=== PATIENT | male | born 1960 | race Caucasian/White ===

== ENCOUNTER 2017-05-03 09:57 | Day surgery (SDC) | payer BC ==
[2017-05-02 13:01] VITALS: BMI 31.1
[2017-05-03] MEDS ORDERED: Propofol 500 MG/50 ML VIAL ONE (10:28)
[2017-05-03] MEDS ORDERED: Midazolam HCl 2 mg/2 ml Vial ONE (10:28)
[2017-05-03] MEDS ORDERED: Fentanyl 100 MCG/2 ML VIAL ONE (10:28)
--- NOTE | 2017-05-03 13:16 | MRI ---
CERVICAL SPINE MRI WITHOUT CONTRAST: Date: 05-03-17 Comparison: 01-20-09 History: Cervical radiculopathy, left shoulder and neck pain for a few months. Technique: Multiplanar, multisequence MR imaging of the cervical spine provided without contrast. FINDINGS: The sagittal STIR imaging demonstrates no focal area of osseous marrow edema. There is no anterolisthesis or retrolisthesis seen. There is mild degenerative change at the atlantoa xial interspace, stable. No prevertebral soft tissue abnormality is noted. C2-3: No central canal or neural foraminal stenosis. C3-4: Mild left sided facet hypertrophy. Mild anterior osteophyte formation. Mild left neural foramin al stenosis. No central canal or right neural foraminal stenosis. C4-5: There is mild bilateral facet hypertrophy, left greater than right. There is no significant shiraz tral canal or neural foraminal stenosis. C5-6: There is mild disc space narrowing and anterior osteophyte formation. There is mild disc bulge with partial effacement of the ventral thecal sac and minimal central canal stenosis. There is a smal l central disc protrusion with minimal superior migration. There is mild facet and uncal vertebral osteophyte formation, left greater than right. There is mild bilateral neural foraminal stenosis, left greater than right. C6-7: There is minimal disc bulge with no central canal or neural foraminal stenosis. C7-T1: Intervertebral disc height and signal intensity is grossly unremarkable with no significant c entral canal or neural foraminal stensois. No focal area of abnormal signal intensity is identified within the cervical cord. IMPRESSION: 1. Relatively mild degenerative change noted within the cervical spine. There is no severe central ca nal or neural foraminal stenosis. POS: [facility]
== END 2017-05-03 12:50 | disposition home or self-care (01) ==
LOC: SDC/OP 09:57
PROVIDERS: ATTEND Nurse Practitioner Family
DX: M54.12 Radiculopathy, cervical region (principal); Z79.891 Long term (current) use of opiate analgesic; Z79.899 Other long term (current) drug therapy
CPT/HCPCS: 72141; J2250; J2704; J3010

== ENCOUNTER 2020-08-04 08:02 | Inpatient (IN) | payer BC ==
[2020-08-04 08:38] LABS: Actual Bicarbonate (HCO3a) 19.8 mEq/L (22-28); Analyzer IN Cardio ER; Base Excess (BEa) -4.6 mEq/L (-2.0 to +3.0); CO2 Tension 34.4 mmHg (35.0-45.0); Calcium, Ionized (arterial) 1.01 mmol/L (1.12-1.30); Hemoglobin (Hb) 14.1 g/dL (14.0-18.0); pH, Arterial 7.38 (7.35-7.45)
[2020-08-04 08:43] LABS: O2 Tension (PaO2), arterial 54.2 mmHg (80.0-100.0); Puncture Site RRA
[2020-08-04] MEDS ORDERED: Dexamethasone 10 MG/ML VIAL ONE (08:52)
[2020-08-04] MEDS ORDERED: Acetaminophen 500 MG TAB ONE (08:52)
[2020-08-04] MEDS ORDERED: Ondansetron PF 4 MG/2 ML Vial ONE (08:52)
[2020-08-04 08:53] LABS: Hemoglobin 13.8 g/dL (14.0-18.0); Mean Corpuscular HGB CONC 33.1 g/dL (32.0-36.0); Mean Corpuscular Hemoglobin 29.7 pg (27.0-31.0); Mean Corpuscular Volume 89.6 fL (78.0-98.0); Mean Platelet Volume 8.5 fL (7.4-10.4); Platelet Count 263 thou/uL (130-400); RBC Distribution Width 12.6 % (11.5-14.5); Red Blood Cell (RBC) Count 4.64 mill/uL (4.70-6.10); White Blood Cell (WBC) Count 9.6 thou/uL (4.8-10.8)
[2020-08-04 09:07] LABS: Band 16 % (5-11); Lymphocytes 12 % (21-51); MDiff Complete? YES; Monocytes 2 % (0-10); Neutrophil 69 % (42-75); Platelet Morphology Comment Appears Adequate; RBC Morphology Normal; Reactive Lymphocytes 1 % (0-10)
[2020-08-04 09:15] LABS: Anion Gap 18 mmol/L (10-20); BUN (Urea Nitrogen) 76 mg/dL (8.4-25.7); Calc. Creatinine Clearance 0 mL/min (70-130); Carbon Dioxide 23 mmol/L (22-29); Chloride 97 mmol/L (98-107); Potassium 4.7 mmol/L (3.5-5.1); Sodium 133 mmol/L (136-145)
[2020-08-04 09:16] LABS: ALT (SGPT) 47 U/L (8-55); AST (SGOT) 83 U/L (5-34); Albumin 3.1 g/dL (3.5-5.0); Alkaline Phosphatase 74 U/L (40-110); CRP (Inflammatory) 22.86 mg/dL (= or < 0.5); Calcium 7.6 mg/dL (7.8-10.44); Globulin 3.4 g/dL (2.4-3.5); Glucose 132 mg/dL (70-105); Protein, Total 6.5 g/dL (6.0-8.3)
[2020-08-04 09:42] LABS: CKMB 9.4 ng/mL (0-6.6)
[2020-08-04] MEDS ORDERED: Enoxaparin Sodium 100 MG/ML SYRINGE ONE (10:02)
[2020-08-04] MEDS ORDERED: cefTRIAXone\\ROCEPHIN 2 GM VIAL ONE (10:02)
[2020-08-04] MEDS ORDERED: Aspirin Chewable 81 MG TAB ONE ×2 (10:02→10:14)
[2020-08-04] MEDS ORDERED: Ondansetron PF 4 MG/2 ML Vial IVP PRN (10:03)
[2020-08-04] MEDS ORDERED: Sodium Chloride 0.9% 1,000 ML IV SCH (10:15)
[2020-08-04 10:42] LABS: SARS-CoV-2 NAA Rapid Test DETECTED (NotDetected)
[2020-08-04 11:54] LABS: Lactic Acid 1.3 mmol/L (0.5-2.2)
[2020-08-04 17:34] LABS: Albumin 3.1 g/dL (3.5-5.0); Anion Gap 16 mmol/L (10-20); BUN (Urea Nitrogen) 66 mg/dL (8.4-25.7); BUN/Creatinine Ratio 15.98; Calc. Creatinine Clearance 0 mL/min (70-130); Calcium 7.5 mg/dL (7.8-10.44); Carbon Dioxide 20 mmol/L (22-29); Chloride 104 mmol/L (98-107); Glucose 166 mg/dL (70-105); Phosphorus 4.1 mg/dL (2.3-4.7); Potassium 4.1 mmol/L (3.5-5.1); Sodium 136 mmol/L (136-145)
[2020-08-04 18:12] LABS: CKMB 23.1 ng/mL (0-6.6)
[2020-08-04] MEDS: Famotidine/PF 20 mg/2ml Vial SLOW IVP SCH (21:48)
[2020-08-04] MEDS: Sodium Chloride 0.9% 1,000 ML IV SCH (21:49)
[2020-08-05] MEDS: Sodium Chloride 0.9% 1,000 ML IV SCH ×5 (04:32→21:13)
[2020-08-05 06:52] LABS: Band 22 % (5-11); Hemoglobin 13.2 g/dL (14.0-18.0); Lymphocytes 5 % (21-51); MDiff Complete? YES; Mean Corpuscular HGB CONC 33.4 g/dL (32.0-36.0); Mean Corpuscular Hemoglobin 30.1 pg (27.0-31.0); Mean Corpuscular Volume 90.2 fL (78.0-98.0); Mean Platelet Volume 8.1 fL (7.4-10.4); Monocytes 2 % (0-10); Neutrophil 71 % (42-75); Platelet Count 316 thou/uL (130-400); Platelet Morphology Comment Appears Adequate; RBC Distribution Width 12.7 % (11.5-14.5); White Blood Cell (WBC) Count 10.9 thou/uL (4.8-10.8)
[2020-08-05 07:01] LABS: ALT (SGPT) 45 U/L (8-55); AST (SGOT) 81 U/L (5-34); Albumin 2.9 g/dL (3.5-5.0); Alkaline Phosphatase 68 U/L (40-110); Anion Gap 12 mmol/L (10-20); BUN (Urea Nitrogen) 56 mg/dL (8.4-25.7); Bilirubin, Total 0.5 mg/dL (0.2-1.2); Calc. Creatinine Clearance 61 mL/min (70-130); Calcium 7.7 mg/dL (7.8-10.44); Carbon Dioxide 21 mmol/L (22-29); Chloride 111 mmol/L (98-107); Globulin 3.2 g/dL (2.4-3.5); Glucose 159 mg/dL (70-105); Potassium 4.2 mmol/L (3.5-5.1); Protein, Total 6.1 g/dL (6.0-8.3); Sodium 140 mmol/L (136-145)
[2020-08-05] MEDS: Enoxaparin Sodium 100 MG/ML SYRINGE SC SCH (07:32)
[2020-08-05] MEDS: Multivit, Therapeutic 1 TAB PO SCH (07:32)
[2020-08-05] MEDS: Famotidine/PF 20 mg/2ml Vial SLOW IVP SCH ×2 (07:32→21:11)
[2020-08-05] MEDS ORDERED: Dexamethasone 4 mg/ml Vial SLOW IVP SCH ×2 (09:00→21:00)
[2020-08-05] MEDS: Cefepime 1 GM in Sodium Chloride 0.9% 100 ML IVPB SCH ×2 (10:20→21:12)
[2020-08-05] MEDS: Vancomycin 1 GM in Premix Bag 1 BAG IVPB SCH ×2 (10:43→23:53)
[2020-08-05] MEDS: DEXAMETHASONE IVPB SCH (11:24)
[2020-08-05] MEDS: SODIUM CHLORIDE 0.9% IVPB SCH (11:24)
[2020-08-05 12:15] LABS: Actual Bicarbonate (HCO3a) 22.5 mEq/L (22-28); Base Excess (BEa) -1.9 mEq/L (-2.0 to +3.0); CO2 Tension 37.1 mmHg (35.0-45.0); Calcium, Ionized (arterial) 1.12 mmol/L (1.12-1.30); Carboxyhemoglobin (COHb) 0.8 gm% (0.0-3.0); Hemoglobin (Hb) 13.7 g/dL (14.0-18.0)
[2020-08-05 12:17] LABS: ALV-art Gradient 357.675 mmHg (0-20); O2 Tension (PaO2), arterial 59.4 mmHg (80.0-100.0); Puncture Site LRA
[2020-08-05] MEDS ORDERED: HYDROCODONE BITARTRATE 60 MG PO SCH (12:30)
[2020-08-05] MEDS: Mometasone 200 MCG/Formoterol 5 MCG 120 PUFF INHALER INH SCH (18:45)
[2020-08-06 04:37] LABS: Albumin 2.7 g/dL (3.5-5.0); Anion Gap 11 mmol/L (10-20); BUN (Urea Nitrogen) 35 mg/dL (8.4-25.7); Bilirubin, Total 0.5 mg/dL (0.2-1.2); Calc. Creatinine Clearance 123 mL/min (70-130); Calcium 7.8 mg/dL (7.8-10.44); Carbon Dioxide 23 mmol/L (22-29); Chloride 113 mmol/L (98-107); Glucose 161 mg/dL (70-105); Potassium 4.5 mmol/L (3.5-5.1); Protein, Total 5.7 g/dL (6.0-8.3); Sodium 142 mmol/L (136-145)
[2020-08-06 04:38] LABS: ALT (SGPT) 36 U/L (8-55); AST (SGOT) 65 U/L (5-34); Alkaline Phosphatase 68 U/L (40-110); Band 6 % (5-11); Hemoglobin 12.3 g/dL (14.0-18.0); Hypochromia SLIGHT = 6-15 cells (100X) (0-5/hpf); Lymphocytes 4 % (21-51); MDiff Complete? YES; Mean Corpuscular HGB CONC 32.5 g/dL (32.0-36.0); Mean Corpuscular Hemoglobin 29.4 pg (27.0-31.0); Mean Corpuscular Volume 90.5 fL (78.0-98.0); Monocytes 1 % (0-10); Neutrophil 89 % (42-75); Platelet Count 356 thou/uL (130-400); Platelet Morphology Comment Appears Adequate; RBC Distribution Width 12.7 % (11.5-14.5); Red Blood Cell (RBC) Count 4.17 mill/uL (4.70-6.10); White Blood Cell (WBC) Count 10.3 thou/uL (4.8-10.8)
[2020-08-06] MEDS: Cefepime 1 GM in Sodium Chloride 0.9% 100 ML IVPB SCH ×2 (08:09→19:45)
[2020-08-06] MEDS: Multivit, Therapeutic 1 TAB PO SCH (08:10)
[2020-08-06] MEDS: Enoxaparin Sodium 100 MG/ML SYRINGE SC SCH ×2 (08:10→19:45)
[2020-08-06] MEDS: Famotidine/PF 20 mg/2ml Vial SLOW IVP SCH ×2 (08:10→19:45)
[2020-08-06] MEDS: HYDROCODONE BITARTRATE 60 MG PO SCH (08:33)
[2020-08-06] MEDS: Benzonatate 100 MG CAP PO PRN ×2 (09:29)
[2020-08-06] MEDS: Mometasone 200 MCG/Formoterol 5 MCG 120 PUFF INHALER INH SCH ×2 (10:06→19:17)
[2020-08-06] MEDS: Vancomycin 1 GM in Premix Bag 1 BAG IVPB SCH (10:18)
[2020-08-06] MEDS: Sodium Chloride 0.9% 1,000 ML IV SCH ×2 (10:26→10:37)
[2020-08-06] MEDS: DEXAMETHASONE IVPB SCH (11:57)
[2020-08-06] MEDS: SODIUM CHLORIDE 0.9% IVPB SCH (11:57)
[2020-08-06] MEDS: ALPRAZolam 0.25 MG TAB PO PRN ×2 (11:58→19:45)
[2020-08-06] MEDS: Colchicine 0.6 MG TAB PO SCH (20:43)
[2020-08-06] MEDS: Doxycycline 100 MG CAP PO SCH (20:43)
[2020-08-07] MEDS ORDERED: Propofol 1,000 MG/100 ML VIAL IV ONE (00:28)
[2020-08-07] MEDS ORDERED: Fentanyl CADD 100 ML ONE ×3 (00:28→23:18)
[2020-08-07] MEDS ORDERED: Succinylcholine 200 MG/10 ml SYRINGE FS ONE (00:40)
[2020-08-07] MEDS ORDERED: Fentanyl BOLUS 250 ML IVPB PRN (00:45)
[2020-08-07] MEDS ORDERED: DISCONTINUE PREVIOUS NARCOTIC PAIN MEDICATIONS AND BENZODIAZEPINES FS SCH (00:45)
[2020-08-07] MEDS ORDERED: Sterile Water 10 ML ONE ×2 (00:52→07:47)
[2020-08-07] MEDS: Vecuronium 10 MG VIAL IVP PRN ×6 (00:53→10:27)
[2020-08-07 01:00] LABS: Actual Bicarbonate (HCO3a) 21.7 mEq/L (22-28); CO2 Tension 41.7 mmHg (35.0-45.0); Calcium, Ionized (arterial) 1.11 mmol/L (1.12-1.30); Carboxyhemoglobin (COHb) 0.6 gm% (0.0-3.0); Hemoglobin (Hb) 13.2 g/dL (14.0-18.0); O2 Tension (PaO2), arterial 63.4 mmHg (80.0-100.0); pH, Arterial 7.33 (7.35-7.45)
[2020-08-07 01:01] LABS: ALV-art Gradient 454.875 mmHg (0-20); Puncture Site LRA
[2020-08-07] MEDS: Sodium Chloride 0.9% 1,000 ML IV SCH ×2 (01:50→12:58)
[2020-08-07] MEDS: Propofol 1,000 MG/100 ML VIAL IV PRN ×5 (04:20→22:23)
[2020-08-07 06:40] LABS: ALT (SGPT) 29 U/L (8-55); AST (SGOT) 40 U/L (5-34); Albumin 2.6 g/dL (3.5-5.0); Alkaline Phosphatase 88 U/L (40-110); Anion Gap 12 mmol/L (10-20); BUN (Urea Nitrogen) 30 mg/dL (8.4-25.7); Bilirubin, Total 0.7 mg/dL (0.2-1.2); Calc. Creatinine Clearance 147 mL/min (70-130); Calcium 7.5 mg/dL (7.8-10.44); Carbon Dioxide 20 mmol/L (22-29); Chloride 117 mmol/L (98-107); Globulin 2.7 g/dL (2.4-3.5); Glucose 122 mg/dL (70-105); Potassium 4.9 mmol/L (3.5-5.1); Protein, Total 5.3 g/dL (6.0-8.3); Sodium 144 mmol/L (136-145)
[2020-08-07 06:47] LABS: Hemoglobin 11.8 g/dL (14.0-18.0); Mean Corpuscular HGB CONC 31.9 g/dL (32.0-36.0); Mean Corpuscular Volume 91.1 fL (78.0-98.0); Mean Platelet Volume 7.7 fL (7.4-10.4); Platelet Count 251 thou/uL (130-400); RBC Distribution Width 12.8 % (11.5-14.5); Red Blood Cell (RBC) Count 4.05 mill/uL (4.70-6.10); White Blood Cell (WBC) Count 8.9 thou/uL (4.8-10.8)
[2020-08-07 06:48] LABS: Band 6 % (5-11); Eosinophils 1 % (0-10); Lymphocytes 6 % (21-51); MDiff Complete? YES; Monocytes 4 % (0-10); Neutrophil 83 % (42-75); Nucleated RBC 1 % (0); Platelet Morphology Comment Appears Adequate
[2020-08-07] MEDS ORDERED: Sodium Chloride 0.9% 10 ML ONE (07:46)
[2020-08-07] MEDS: Cefepime 1 GM in Sodium Chloride 0.9% 100 ML IVPB SCH ×2 (07:59→20:33)
[2020-08-07] MEDS: Enoxaparin Sodium 100 MG/ML SYRINGE SC SCH ×2 (07:59→20:34)
[2020-08-07] MEDS: Famotidine/PF 20 mg/2ml Vial SLOW IVP SCH ×2 (08:00→20:34)
[2020-08-07] MEDS: Multivit, Therapeutic 1 TAB PO SCH (08:00)
[2020-08-07] MEDS: HYDROCODONE BITARTRATE 60 MG PO SCH (08:02)
[2020-08-07] MEDS: Colchicine 0.6 MG TAB PO SCH ×2 (08:13→20:34)
[2020-08-07] MEDS: Doxycycline 100 MG CAP PO SCH ×2 (08:14→20:34)
[2020-08-07] MEDS: Mometasone 200 MCG/Formoterol 5 MCG 120 PUFF INHALER INH SCH ×2 (08:27→18:41)
[2020-08-07] MEDS: DEXAMETHASONE IVPB SCH (10:26)
[2020-08-07] MEDS: SODIUM CHLORIDE 0.9% IVPB SCH (10:26)
[2020-08-07] MEDS: Fentanyl CADD 100 ML IV SCH (12:17)
[2020-08-07] MEDS: Lorazepam 2 MG/ML VIAL SLOW IVP PRN ×3 (12:30→20:33)
[2020-08-07] MEDS: Amitriptyline HCl 25 MG TAB PO SCH (20:34)
[2020-08-08] MEDS: Sodium Chloride 0.9% 1,000 ML IV SCH ×2 (02:11→15:39)
[2020-08-08] MEDS: Propofol 1,000 MG/100 ML VIAL IV PRN ×5 (03:50→23:10)
[2020-08-08 03:56] LABS: #Lymphocytes 0.4 thou/uL (1.20-3.40); #Monocytes 0.3 thou/uL (0.11-0.59); #Neutrophils 6.7 thou/uL (1.40-6.50); %Lymphocytes 5.5 % (21.0-51.0); %Monocytes 3.4 % (0.0-10.0); Hemoglobin 11.3 g/dL (14.0-18.0); Mean Corpuscular HGB CONC 32.2 g/dL (32.0-36.0); Mean Corpuscular Hemoglobin 29.5 pg (27.0-31.0); Mean Corpuscular Volume 91.7 fL (78.0-98.0); Mean Platelet Volume 8.2 fL (7.4-10.4); Platelet Count 253 thou/uL (130-400); RBC Distribution Width 13.1 % (11.5-14.5); Red Blood Cell (RBC) Count 3.84 mill/uL (4.70-6.10); White Blood Cell (WBC) Count 7.4 thou/uL (4.8-10.8)
[2020-08-08 04:15] LABS: Anion Gap 8 mmol/L (10-20); BUN (Urea Nitrogen) 26 mg/dL (8.4-25.7); Calc. Creatinine Clearance 149 mL/min (70-130); Calcium 7.8 mg/dL (7.8-10.44); Carbon Dioxide 24 mmol/L (22-29); Chloride 116 mmol/L (98-107); Glucose 145 mg/dL (70-105); Potassium 4.8 mmol/L (3.5-5.1); Sodium 143 mmol/L (136-145)
[2020-08-08] MEDS: Lorazepam 2 MG/ML VIAL SLOW IVP PRN ×6 (05:07→22:55)
[2020-08-08 07:25] LABS: Actual Bicarbonate (HCO3a) 23.9 mEq/L (22-28); Base Excess (BEa) 0.8 mEq/L (-2.0 to +3.0); Calcium, Ionized (arterial) 1.14 mmol/L (1.12-1.30); Carboxyhemoglobin (COHb) 0.7 gm% (0.0-3.0); Hemoglobin (Hb) 11.6 g/dL (14.0-18.0); pH, Arterial 7.48 (7.35-7.45)
[2020-08-08] MEDS: Mometasone 200 MCG/Formoterol 5 MCG 120 PUFF INHALER INH SCH ×2 (07:48→19:29)
[2020-08-08 07:52] LABS: O2 Tension (PaO2), arterial 56.2 mmHg (80.0-100.0); Puncture Site RRA
[2020-08-08] MEDS: Colchicine 0.6 MG TAB PO SCH ×2 (07:53→21:07)
[2020-08-08] MEDS: Cefepime 1 GM in Sodium Chloride 0.9% 100 ML IVPB SCH ×2 (07:53→21:07)
[2020-08-08] MEDS: Enoxaparin Sodium 100 MG/ML SYRINGE SC SCH ×2 (07:54→21:07)
[2020-08-08] MEDS: Famotidine/PF 20 mg/2ml Vial SLOW IVP SCH ×2 (07:54→21:08)
[2020-08-08] MEDS: Multivit, Therapeutic 1 TAB PO SCH (07:54)
[2020-08-08] MEDS: Doxycycline 100 MG CAP PO SCH ×2 (07:59→21:07)
[2020-08-08] MEDS ORDERED: Fentanyl CADD 100 ML ONE (11:01)
[2020-08-08] MEDS: DEXAMETHASONE IVPB SCH (11:08)
[2020-08-08] MEDS: SODIUM CHLORIDE 0.9% IVPB SCH (11:08)
[2020-08-08] MEDS: Fentanyl CADD 100 ML IV SCH (11:09)
[2020-08-08] MEDS: Vecuronium 10 MG VIAL IVP PRN ×2 (11:30→13:00)
[2020-08-08] MEDS: Propofol BOLUS 1,000 MG/100 ML VIAL IV PRN ×2 (19:38→22:59)
[2020-08-08] MEDS: Amitriptyline HCl 25 MG TAB PO SCH (21:07)
[2020-08-09] MEDS: Lorazepam 2 MG/ML VIAL SLOW IVP PRN ×7 (02:34→21:52)
[2020-08-09] MEDS ORDERED: Fentanyl CADD 100 ML ONE ×2 (03:36→13:49)
[2020-08-09] MEDS: Propofol 1,000 MG/100 ML VIAL IV PRN ×4 (04:18→17:42)
[2020-08-09] MEDS: Propofol BOLUS 1,000 MG/100 ML VIAL IV PRN ×3 (05:00→21:45)
[2020-08-09] MEDS: Vecuronium 10 MG VIAL IVP PRN ×5 (05:07→21:38)
[2020-08-09 05:19] LABS: Anion Gap 9 mmol/L (10-20); BUN (Urea Nitrogen) 25 mg/dL (8.4-25.7); Calc. Creatinine Clearance 158 mL/min (70-130); Calcium 7.8 mg/dL (7.8-10.44); Carbon Dioxide 25 mmol/L (22-29); Chloride 112 mmol/L (98-107); Glucose 131 mg/dL (70-105); Potassium 4.6 mmol/L (3.5-5.1); Sodium 141 mmol/L (136-145)
[2020-08-09] MEDS: Sodium Chloride 0.9% 1,000 ML IV SCH (05:44)
[2020-08-09 06:09] LABS: Hemoglobin 10.7 g/dL (14.0-18.0); Mean Corpuscular Hemoglobin 28.4 pg (27.0-31.0); Mean Corpuscular Volume 91.6 fL (78.0-98.0); Mean Platelet Volume 8.5 fL (7.4-10.4); Platelet Count 297 thou/uL (130-400); RBC Distribution Width 13.2 % (11.5-14.5); Red Blood Cell (RBC) Count 3.78 mill/uL (4.70-6.10); White Blood Cell (WBC) Count 7.8 thou/uL (4.8-10.8)
[2020-08-09 06:20] LABS: Band 10 % (5-11); Lymphocytes 2 % (21-51); MDiff Complete? YES; Monocytes 6 % (0-10); Neutrophil 82 % (42-75)
[2020-08-09 07:08] LABS: Actual Bicarbonate (HCO3a) 23.8 mEq/L (22-28); Base Excess (BEa) -0.5 mEq/L (-2.0 to +3.0); CO2 Tension 38.1 mmHg (35.0-45.0); Calcium, Ionized (arterial) 1.12 mmol/L (1.12-1.30); Carboxyhemoglobin (COHb) 1.4 gm% (0.0-3.0); Hemoglobin (Hb) 14.1 g/dL (14.0-18.0); Potassium - ABG Lab 4.49 mmol/L (3.70-5.30); pH, Arterial 7.41 (7.35-7.45)
[2020-08-09] MEDS: Mometasone 200 MCG/Formoterol 5 MCG 120 PUFF INHALER INH SCH ×2 (07:22→20:09)
[2020-08-09 07:24] LABS: O2 Tension (PaO2), arterial 49.4 mmHg (80.0-100.0)
[2020-08-09 07:25] LABS: ALV-art Gradient 259.475 mmHg (0-20); Puncture Site RRA
[2020-08-09] MEDS ORDERED: fentaNYL Citrate/PF 2,000 MCG in Sodium Chloride 0.9% 60 ML IV PRN (08:11)
[2020-08-09] MEDS: Enoxaparin Sodium 100 MG/ML SYRINGE SC SCH ×2 (08:41→20:43)
[2020-08-09] MEDS: Multivit, Therapeutic 1 TAB PO SCH (08:43)
[2020-08-09] MEDS: Famotidine/PF 20 mg/2ml Vial SLOW IVP SCH ×2 (08:43→20:43)
[2020-08-09] MEDS: Colchicine 0.6 MG TAB PO SCH ×2 (08:47→20:42)
[2020-08-09] MEDS: Doxycycline 100 MG CAP PO SCH ×2 (08:47→20:43)
[2020-08-09] MEDS: Cefepime 1 GM in Sodium Chloride 0.9% 100 ML IVPB SCH ×2 (08:47→20:42)
[2020-08-09] MEDS: Lactated Ringer's 1,000 ML IV SCH (09:06)
[2020-08-09] MEDS: SODIUM CHLORIDE 0.9% IVPB SCH (11:33)
[2020-08-09] MEDS: DEXAMETHASONE IVPB SCH (11:33)
[2020-08-09] MEDS: Fentanyl CADD 100 ML IV SCH (13:58)
[2020-08-09] MEDS: Morphine 4 MG/ML VIAL SLOW IVP PRN (19:03)
[2020-08-09] MEDS: Amitriptyline HCl 25 MG TAB PO SCH (20:42)
[2020-08-10] MEDS: Propofol 1,000 MG/100 ML VIAL IV PRN ×5 (01:30→23:07)
[2020-08-10] MEDS ORDERED: Fentanyl CADD 100 ML ONE ×4 (01:34→20:28)
[2020-08-10] MEDS: Lactated Ringer's 1,000 ML IV SCH ×3 (02:05→20:44)
[2020-08-10] MEDS: Propofol BOLUS 1,000 MG/100 ML VIAL IV PRN ×2 (04:30→05:58)
[2020-08-10 04:58] LABS: Phosphorus 3.4 mg/dL (2.3-4.7)
[2020-08-10 05:00] LABS: Anion Gap 9 mmol/L (10-20); BUN (Urea Nitrogen) 21 mg/dL (8.4-25.7); Calc. Creatinine Clearance 159 mL/min (70-130); Calcium 7.8 mg/dL (7.8-10.44); Carbon Dioxide 27 mmol/L (22-29); Chloride 110 mmol/L (98-107); Glucose 113 mg/dL (70-105); Potassium 4.7 mmol/L (3.5-5.1); Sodium 141 mmol/L (136-145)
[2020-08-10 05:16] LABS: Band 33 % (5-11); Hemoglobin 11.4 g/dL (14.0-18.0); Lymphocytes 9 % (21-51); MDiff Complete? YES; Mean Corpuscular HGB CONC 32.3 g/dL (32.0-36.0); Mean Corpuscular Hemoglobin 29.6 pg (27.0-31.0); Mean Corpuscular Volume 91.6 fL (78.0-98.0); Mean Platelet Volume 8.4 fL (7.4-10.4); Monocytes 1 % (0-10); Myelocyte 1 % (0-0); Neutrophil 56 % (42-75); Platelet Count 288 thou/uL (130-400); Red Blood Cell (RBC) Count 3.86 mill/uL (4.70-6.10); White Blood Cell (WBC) Count 8.6 thou/uL (4.8-10.8)
[2020-08-10] MEDS: Lorazepam 2 MG/ML VIAL SLOW IVP PRN ×4 (06:05→18:00)
[2020-08-10] MEDS: Vecuronium 10 MG VIAL IVP PRN ×5 (07:30→18:00)
[2020-08-10] MEDS ORDERED: Vecuronium Bromide 50 MG in Sodium Chloride 0.9% 250 ML 250 ML IV SCH (07:40)
[2020-08-10] MEDS: Mometasone 200 MCG/Formoterol 5 MCG 120 PUFF INHALER INH SCH ×2 (08:08→18:21)
[2020-08-10] MEDS: Lisinopril 10 MG TAB PER TUBE SCH (08:10)
[2020-08-10] MEDS: Enoxaparin Sodium 100 MG/ML SYRINGE SC SCH ×2 (08:10→21:23)
[2020-08-10] MEDS: ALPRAZolam 0.25 MG TAB PO PRN (08:11)
[2020-08-10] MEDS: Colchicine 0.6 MG TAB PO SCH ×2 (08:11→21:23)
[2020-08-10] MEDS: Multivit, Therapeutic 1 TAB PO SCH (08:11)
[2020-08-10] MEDS: Famotidine/PF 20 mg/2ml Vial SLOW IVP SCH ×2 (08:11→21:23)
[2020-08-10] MEDS: Morphine 4 MG/ML VIAL SLOW IVP PRN ×3 (08:11→18:00)
[2020-08-10 08:30] LABS: Actual Bicarbonate (HCO3a) 28.4 mEq/L (22-28); Base Excess (BEa) 2.7 mEq/L (-2.0 to +3.0); CO2 Tension 48.7 mmHg (35.0-45.0); Calcium, Ionized (arterial) 1.13 mmol/L (1.12-1.30); Carboxyhemoglobin (COHb) 0.7 gm% (0.0-3.0); Hemoglobin (Hb) 12.1 g/dL (14.0-18.0); Potassium - ABG Lab 4.28 mmol/L (3.70-5.30); pH, Arterial 7.38 (7.35-7.45)
[2020-08-10] MEDS: Fentanyl CADD 100 ML IV SCH (09:41)
[2020-08-10] MEDS: SODIUM CHLORIDE 0.9% IVPB SCH ×2 (11:05→14:22)
[2020-08-10] MEDS: DEXAMETHASONE IVPB SCH ×2 (11:05→14:22)
[2020-08-10] MEDS: Amitriptyline HCl 25 MG TAB PO SCH (21:23)
[2020-08-10] MEDS ORDERED: Propofol BOLUS 1,000 MG/100 ML VIAL IV PRN (22:44)
[2020-08-11] MEDS: Propofol 1,000 MG/100 ML VIAL IV PRN ×7 (01:40→20:46)
[2020-08-11 04:36] LABS: Hemoglobin 11.9 g/dL (14.0-18.0); Mean Corpuscular HGB CONC 32.4 g/dL (32.0-36.0); Mean Corpuscular Hemoglobin 29.2 pg (27.0-31.0); Mean Corpuscular Volume 90.2 fL (78.0-98.0); Mean Platelet Volume 8.1 fL (7.4-10.4); Platelet Count 292 thou/uL (130-400); RBC Distribution Width 13.1 % (11.5-14.5); Red Blood Cell (RBC) Count 4.08 mill/uL (4.70-6.10); White Blood Cell (WBC) Count 9.6 thou/uL (4.8-10.8)
[2020-08-11 04:43] LABS: Anion Gap 9 mmol/L (10-20); BUN (Urea Nitrogen) 17 mg/dL (8.4-25.7); Calc. Creatinine Clearance 182 mL/min (70-130); Calcium 7.9 mg/dL (7.8-10.44); Carbon Dioxide 28 mmol/L (22-29); Chloride 104 mmol/L (98-107); Glucose 119 mg/dL (70-105); Magnesium 1.6 mg/dL (1.6-2.6); Potassium 4.3 mmol/L (3.5-5.1); Sodium 137 mmol/L (136-145)
[2020-08-11 04:44] LABS: Phosphorus 3.5 mg/dL (2.3-4.7)
[2020-08-11 05:05] LABS: Band 9 % (5-11); Lymphocytes 3 % (21-51); MDiff Complete? YES; Metamyelocyte 2 % (0-0); Monocytes 4 % (0-10); Myelocyte 2 % (0-0); Neutrophil 80 % (42-75)
[2020-08-11] MEDS: Lactated Ringer's 1,000 ML IV SCH ×2 (07:52→23:07)
[2020-08-11 07:56] LABS: Actual Bicarbonate (HCO3a) 28.3 mEq/L (22-28); CO2 Tension 33.3 mmHg (35.0-45.0); Calcium, Ionized (arterial) 1.11 mmol/L (1.12-1.30); Carboxyhemoglobin (COHb) 0.5 gm% (0.0-3.0); Hemoglobin (Hb) 12.8 g/dL (14.0-18.0); O2 Tension (PaO2), arterial 65.6 mmHg (80.0-100.0)
[2020-08-11 07:58] LABS: Puncture Site RRA; pH, Arterial 7.55 (7.35-7.45)
[2020-08-11 07:59] LABS: ALV-art Gradient 249.275 mmHg (0-20)
[2020-08-11] MEDS: Mometasone 200 MCG/Formoterol 5 MCG 120 PUFF INHALER INH SCH ×2 (08:03→18:12)
[2020-08-11] MEDS ORDERED: Fentanyl CADD 100 ML ONE ×2 (08:55→20:35)
[2020-08-11] MEDS: Lisinopril 10 MG TAB PER TUBE SCH (08:59)
[2020-08-11] MEDS: Enoxaparin Sodium 100 MG/ML SYRINGE SC SCH ×2 (08:59→20:47)
[2020-08-11] MEDS: Famotidine/PF 20 mg/2ml Vial SLOW IVP SCH ×2 (08:59→20:46)
[2020-08-11] MEDS: Multivit, Therapeutic 1 TAB PO SCH (08:59)
[2020-08-11] MEDS: Colchicine 0.6 MG TAB PO SCH ×2 (08:59→20:46)
[2020-08-11] MEDS: SODIUM CHLORIDE 0.9% IVPB SCH (11:02)
[2020-08-11] MEDS: DEXAMETHASONE IVPB SCH (11:02)
[2020-08-11] MEDS: Cefepime 1 GM in Sodium Chloride 0.9% 100 ML IVPB SCH ×2 (11:04→20:46)
[2020-08-11] MEDS: Lorazepam 2 MG/ML VIAL SLOW IVP PRN (11:47)
[2020-08-11] MEDS: Fentanyl CADD 100 ML IV SCH (20:43)
[2020-08-11] MEDS: Amitriptyline HCl 25 MG TAB PO SCH (20:46)
[2020-08-12] MEDS: Propofol 1,000 MG/100 ML VIAL IV PRN ×7 (00:06→21:34)
[2020-08-12 05:05] LABS: #Lymphocytes 0.7 thou/uL (1.20-3.40); #Monocytes 0.8 thou/uL (0.11-0.59); #Neutrophils 12.3 thou/uL (1.40-6.50); %Basophils 0.3 % (0.0-1.0); %Lymphocytes 5.1 % (21.0-51.0); %Monocytes 5.4 % (0.0-10.0); %Neutrophils 89.2 % (42.0-75.0); Hemoglobin 11.7 g/dL (14.0-18.0); Mean Corpuscular HGB CONC 32.2 g/dL (32.0-36.0); Mean Corpuscular Hemoglobin 29.3 pg (27.0-31.0); Mean Corpuscular Volume 91.2 fL (78.0-98.0); Mean Platelet Volume 8.4 fL (7.4-10.4); Platelet Count 289 thou/uL (130-400); RBC Distribution Width 13.4 % (11.5-14.5); Red Blood Cell (RBC) Count 3.99 mill/uL (4.70-6.10); White Blood Cell (WBC) Count 13.8 thou/uL (4.8-10.8)
[2020-08-12 05:27] LABS: Anion Gap 10 mmol/L (10-20); BUN (Urea Nitrogen) 19 mg/dL (8.4-25.7); Calc. Creatinine Clearance 176 mL/min (70-130); Calcium 7.8 mg/dL (7.8-10.44); Carbon Dioxide 29 mmol/L (22-29); Chloride 105 mmol/L (98-107); Glucose 115 mg/dL (70-105); Magnesium 1.7 mg/dL (1.6-2.6); Potassium 4.4 mmol/L (3.5-5.1); Sodium 140 mmol/L (136-145)
[2020-08-12] MEDS: Mometasone 200 MCG/Formoterol 5 MCG 120 PUFF INHALER INH SCH ×2 (07:30→18:19)
[2020-08-12 08:20] LABS: Actual Bicarbonate (HCO3a) 28.7 mEq/L (22-28); Base Excess (BEa) 4.4 mEq/L (-2.0 to +3.0); CO2 Tension 41.8 mmHg (35.0-45.0); Calcium, Ionized (arterial) 1.14 mmol/L (1.12-1.30); Carboxyhemoglobin (COHb) 0.8 gm% (0.0-3.0); Hemoglobin (Hb) 12.1 g/dL (14.0-18.0); O2 Tension (PaO2), arterial 66.8 mmHg (80.0-100.0); pH, Arterial 7.46 (7.35-7.45)
[2020-08-12 08:22] LABS: Puncture Site LRA
[2020-08-12] MEDS: Cefepime 1 GM in Sodium Chloride 0.9% 100 ML IVPB SCH ×2 (08:49→19:40)
[2020-08-12] MEDS: Famotidine/PF 20 mg/2ml Vial SLOW IVP SCH ×2 (08:50→19:41)
[2020-08-12] MEDS: Enoxaparin Sodium 100 MG/ML SYRINGE SC SCH ×2 (08:51→19:39)
[2020-08-12] MEDS: Lisinopril 10 MG TAB PER TUBE SCH (08:51)
[2020-08-12] MEDS: Multivit, Therapeutic 1 TAB PO SCH (08:51)
[2020-08-12] MEDS: Colchicine 0.6 MG TAB PO SCH ×2 (09:21→19:43)
[2020-08-12] MEDS ORDERED: Fentanyl CADD 100 ML ONE (09:26)
[2020-08-12] MEDS ORDERED: risperiDONE 1 MG TAB PO SCH ×4 (09:45→21:00)
[2020-08-12] MEDS ORDERED: HYDROcodone/Acetaminophen 5/325 mg Tablet PO SCH ×3 (11:00→11:15)
[2020-08-12] MEDS: SODIUM CHLORIDE 0.9% IVPB SCH (11:07)
[2020-08-12] MEDS: DEXAMETHASONE IVPB SCH (11:07)
[2020-08-12] MEDS ORDERED: risperiDONE 1 MG TAB ONE (11:14)
[2020-08-12] MEDS ORDERED: HYDROcodone/Acetaminophen 5/325 mg Tablet ONE (11:15)
[2020-08-12] MEDS: Lactated Ringer's 1,000 ML IV SCH (15:43)
[2020-08-12] MEDS: Amitriptyline HCl 25 MG TAB PO SCH (19:40)
[2020-08-12] MEDS: HYDROcodone/Acetaminophen 5/325 mg Tablet PO SCH (19:40)
[2020-08-12] MEDS: risperiDONE 1 MG TAB PO SCH (19:40)
[2020-08-12] MEDS: Vecuronium 10 MG VIAL IVP PRN (20:54)
[2020-08-12] MEDS: Lorazepam 2 MG/ML VIAL SLOW IVP PRN (21:34)
[2020-08-13] MEDS: Vecuronium 10 MG VIAL IVP PRN ×3 (00:01→20:05)
[2020-08-13] MEDS: Propofol 1,000 MG/100 ML VIAL IV PRN ×7 (00:35→21:49)
[2020-08-13] MEDS: Lactated Ringer's 1,000 ML IV SCH ×2 (03:07→13:01)
[2020-08-13 05:19] LABS: #Lymphocytes 0.8 thou/uL (1.20-3.40); #Neutrophils 12.1 thou/uL (1.40-6.50); %Basophils 0.3 % (0.0-1.0); %Eosinophils 0.1 % (0.0-10.0); %Monocytes 7.2 % (0.0-10.0); %Neutrophils 86.4 % (42.0-75.0); Hemoglobin 12.5 g/dL (14.0-18.0); Mean Corpuscular HGB CONC 31.4 g/dL (32.0-36.0); Mean Corpuscular Volume 92.4 fL (78.0-98.0); Mean Platelet Volume 8.1 fL (7.4-10.4); Platelet Count 282 thou/uL (130-400); Red Blood Cell (RBC) Count 4.33 mill/uL (4.70-6.10)
[2020-08-13 05:40] LABS: Anion Gap 10 mmol/L (10-20); BUN (Urea Nitrogen) 20 mg/dL (8.4-25.7); Calc. Creatinine Clearance 147 mL/min (70-130); Calcium 8.3 mg/dL (7.8-10.44); Carbon Dioxide 31 mmol/L (22-29); Chloride 108 mmol/L (98-107); Glucose 134 mg/dL (70-105); Magnesium 1.9 mg/dL (1.6-2.6); Potassium 4.1 mmol/L (3.5-5.1); Sodium 145 mmol/L (136-145)
[2020-08-13] MEDS: Lorazepam 2 MG/ML VIAL SLOW IVP PRN ×3 (06:21→20:51)
[2020-08-13] MEDS: Mometasone 200 MCG/Formoterol 5 MCG 120 PUFF INHALER INH SCH ×2 (08:00→19:42)
[2020-08-13 08:03] LABS: Actual Bicarbonate (HCO3a) 27.4 mEq/L (22-28); Base Excess (BEa) 3.6 mEq/L (-2.0 to +3.0); CO2 Tension 38.9 mmHg (35.0-45.0); Calcium, Ionized (arterial) 1.17 mmol/L (1.12-1.30); Carboxyhemoglobin (COHb) 1.2 gm% (0.0-3.0); Hemoglobin (Hb) 13.2 g/dL (14.0-18.0); Potassium - ABG Lab 4.13 mmol/L (3.70-5.30); pH, Arterial 7.47 (7.35-7.45)
[2020-08-13 08:05] LABS: ALV-art Gradient 181.575 mmHg (0-20); Puncture Site LRA
[2020-08-13] MEDS: Cefepime 1 GM in Sodium Chloride 0.9% 100 ML IVPB SCH ×2 (09:14→19:58)
[2020-08-13] MEDS: Enoxaparin Sodium 100 MG/ML SYRINGE SC SCH ×2 (09:14→19:57)
[2020-08-13] MEDS: Colchicine 0.6 MG TAB PO SCH ×2 (09:15→19:56)
[2020-08-13] MEDS: risperiDONE 1 MG TAB PO SCH ×2 (09:15→19:59)
[2020-08-13] MEDS: Famotidine/PF 20 mg/2ml Vial SLOW IVP SCH ×2 (09:15→19:57)
[2020-08-13] MEDS: HYDROcodone/Acetaminophen 5/325 mg Tablet PO SCH ×2 (09:16→19:58)
[2020-08-13] MEDS: Multivit, Therapeutic 1 TAB PO SCH (09:16)
[2020-08-13] MEDS: Lisinopril 10 MG TAB PER TUBE SCH (09:16)
[2020-08-13] MEDS: SODIUM CHLORIDE 0.9% IVPB SCH (11:40)
[2020-08-13] MEDS: DEXAMETHASONE IVPB SCH (11:40)
[2020-08-13] MEDS: Amitriptyline HCl 25 MG TAB PO SCH (19:58)
[2020-08-14] MEDS: Lorazepam 2 MG/ML VIAL SLOW IVP PRN ×2 (00:51→07:40)
[2020-08-14] MEDS: Propofol 1,000 MG/100 ML VIAL IV PRN ×5 (01:58→21:01)
[2020-08-14 04:36] LABS: #Lymphocytes 0.8 thou/uL (1.20-3.40); #Neutrophils 12.7 thou/uL (1.40-6.50); %Basophils 0.3 % (0.0-1.0); %Lymphocytes 5.4 % (21.0-51.0); %Monocytes 6.8 % (0.0-10.0); %Neutrophils 87.5 % (42.0-75.0); Mean Corpuscular HGB CONC 31.8 g/dL (32.0-36.0); Mean Corpuscular Volume 94.2 fL (78.0-98.0); Mean Platelet Volume 8.4 fL (7.4-10.4); Platelet Count 274 thou/uL (130-400); RBC Distribution Width 14.3 % (11.5-14.5); Red Blood Cell (RBC) Count 4.32 mill/uL (4.70-6.10); White Blood Cell (WBC) Count 14.6 thou/uL (4.8-10.8)
[2020-08-14 04:57] LABS: Anion Gap 10 mmol/L (10-20); BUN (Urea Nitrogen) 20 mg/dL (8.4-25.7); Calc. Creatinine Clearance 162 mL/min (70-130); Calcium 8.4 mg/dL (7.8-10.44); Carbon Dioxide 29 mmol/L (22-29); Chloride 108 mmol/L (98-107); Glucose 132 mg/dL (70-105); Sodium 143 mmol/L (136-145)
[2020-08-14] MEDS: Lactated Ringer's 1,000 ML IV SCH ×3 (05:35→23:48)
[2020-08-14] MEDS: HYDROcodone/Acetaminophen 5/325 mg Tablet PO SCH ×2 (07:40→20:56)
[2020-08-14] MEDS: risperiDONE 1 MG TAB PO SCH ×2 (07:40→20:57)
[2020-08-14] MEDS: Multivit, Therapeutic 1 TAB PO SCH (07:40)
[2020-08-14] MEDS: Enoxaparin Sodium 100 MG/ML SYRINGE SC SCH ×2 (07:40→20:55)
[2020-08-14] MEDS: Colchicine 0.6 MG TAB PO SCH ×2 (07:40→20:55)
[2020-08-14] MEDS: Famotidine/PF 20 mg/2ml Vial SLOW IVP SCH ×2 (07:41→20:55)
[2020-08-14] MEDS: Lisinopril 10 MG TAB PER TUBE SCH (07:41)
[2020-08-14] MEDS: Cefepime 1 GM in Sodium Chloride 0.9% 100 ML IVPB SCH ×2 (07:41→20:54)
[2020-08-14] MEDS: Mometasone 200 MCG/Formoterol 5 MCG 120 PUFF INHALER INH SCH ×2 (08:15→19:12)
[2020-08-14 08:22] LABS: Actual Bicarbonate (HCO3a) 26.8 mEq/L (22-28); Base Excess (BEa) 2.9 mEq/L (-2.0 to +3.0); CO2 Tension 38.7 mmHg (35.0-45.0); Calcium, Ionized (arterial) 1.19 mmol/L (1.12-1.30); Carboxyhemoglobin (COHb) 0.6 gm% (0.0-3.0); Hemoglobin (Hb) 13.1 g/dL (14.0-18.0); Potassium - ABG Lab 3.78 mmol/L (3.70-5.30); Puncture Site LRA; pH, Arterial 7.46 (7.35-7.45)
[2020-08-14 08:23] LABS: ALV-art Gradient 84.825 mmHg (0-20)
[2020-08-14 09:52] LABS: O2 Tension (PaO2), arterial 51.5 mmHg (80.0-100.0)
[2020-08-14 09:53] LABS: Puncture Site RRA
[2020-08-14 09:54] LABS: ALV-art Gradient 315.425 mmHg (0-20)
[2020-08-14] MEDS: DEXAMETHASONE IVPB SCH (10:46)
[2020-08-14] MEDS: SODIUM CHLORIDE 0.9% IVPB SCH (10:46)
[2020-08-14] MEDS: Amitriptyline HCl 25 MG TAB PO SCH (20:54)
[2020-08-14] MEDS: ALPRAZolam 0.25 MG TAB PO PRN (20:57)
[2020-08-15 04:59] LABS: #Monocytes 1.1 thou/uL (0.11-0.59); #Neutrophils 10.6 thou/uL (1.40-6.50); %Basophils 0.2 % (0.0-1.0); %Eosinophils 0.2 % (0.0-10.0); %Lymphocytes 8.2 % (21.0-51.0); %Monocytes 8.4 % (0.0-10.0); Hemoglobin 12.8 g/dL (14.0-18.0); Mean Corpuscular HGB CONC 32.5 g/dL (32.0-36.0); Mean Corpuscular Hemoglobin 29.9 pg (27.0-31.0); Mean Platelet Volume 8.4 fL (7.4-10.4); Platelet Count 237 thou/uL (130-400); Red Blood Cell (RBC) Count 4.27 mill/uL (4.70-6.10); White Blood Cell (WBC) Count 12.8 thou/uL (4.8-10.8)
[2020-08-15 05:18] LABS: Anion Gap 11 mmol/L (10-20); BUN (Urea Nitrogen) 24 mg/dL (8.4-25.7); Calc. Creatinine Clearance 170 mL/min (70-130); Calcium 8.2 mg/dL (7.8-10.44); Carbon Dioxide 28 mmol/L (22-29); Chloride 109 mmol/L (98-107); Glucose 133 mg/dL (70-105); Potassium 3.8 mmol/L (3.5-5.1); Sodium 144 mmol/L (136-145)
[2020-08-15] MEDS: Propofol 1,000 MG/100 ML VIAL IV PRN ×3 (06:42→21:40)
[2020-08-15] MEDS: Mometasone 200 MCG/Formoterol 5 MCG 120 PUFF INHALER INH SCH ×2 (06:57→18:27)
[2020-08-15 07:08] LABS: Actual Bicarbonate (HCO3a) 25.1 mEq/L (22-28); CO2 Tension 34.6 mmHg (35.0-45.0); Calcium, Ionized (arterial) 1.19 mmol/L (1.12-1.30); Carboxyhemoglobin (COHb) 1.1 gm% (0.0-3.0); Hemoglobin (Hb) 13.3 g/dL (14.0-18.0); Potassium - ABG Lab 3.74 mmol/L (3.70-5.30); pH, Arterial 7.48 (7.35-7.45)
[2020-08-15 07:12] LABS: O2 Tension (PaO2), arterial 59.2 mmHg (80.0-100.0); Puncture Site LRA
[2020-08-15] MEDS: Cefepime 1 GM in Sodium Chloride 0.9% 100 ML IVPB SCH ×2 (08:53→20:44)
[2020-08-15] MEDS: Famotidine/PF 20 mg/2ml Vial SLOW IVP SCH ×2 (08:56→20:43)
[2020-08-15] MEDS: Enoxaparin Sodium 100 MG/ML SYRINGE SC SCH ×2 (08:56→20:43)
[2020-08-15] MEDS: risperiDONE 1 MG TAB PO SCH ×2 (08:57→20:43)
[2020-08-15] MEDS: Colchicine 0.6 MG TAB PO SCH ×2 (08:57→20:43)
[2020-08-15] MEDS: Multivit, Therapeutic 1 TAB PO SCH (08:58)
[2020-08-15] MEDS: HYDROcodone/Acetaminophen 5/325 mg Tablet PO SCH (08:59)
[2020-08-15] MEDS: Lisinopril 10 MG TAB PER TUBE SCH (09:05)
[2020-08-15] MEDS: Lorazepam 2 MG/ML VIAL SLOW IVP PRN (14:50)
[2020-08-15] MEDS: Lactated Ringer's 1,000 ML IV SCH (20:24)
[2020-08-15] MEDS ORDERED: fentaNYL Citrate/PF 2,000 MCG in Sodium Chloride 0.9% 60 ML IV SCH ×2 (20:30→20:45)
[2020-08-15] MEDS ORDERED: Fentanyl CADD 100 ML ONE (20:34)
[2020-08-15] MEDS: Amitriptyline HCl 25 MG TAB PO SCH (20:42)
[2020-08-15] MEDS: Dexamethasone 4 mg/ml Vial SLOW IVP SCH (20:43)
[2020-08-15] MEDS ORDERED: Fentanyl BOLUS 250 ML IVPB PRN (20:45)
[2020-08-15] MEDS ORDERED: Propofol BOLUS 1,000 MG/100 ML VIAL IV PRN (21:00)
[2020-08-15] MEDS ORDERED: Lorazepam 2 MG/ML VIAL SLOW IVP PRN (21:00)
[2020-08-15] MEDS ORDERED: Dexamethasone 20 MG/5 ML VIAL SLOW IVP SCH (21:00)
[2020-08-16] MEDS: Propofol 1,000 MG/100 ML VIAL IV PRN ×3 (04:29→14:42)
[2020-08-16 04:45] LABS: #Lymphocytes 1.1 thou/uL (1.20-3.40); #Monocytes 1.2 thou/uL (0.11-0.59); #Neutrophils 12.1 thou/uL (1.40-6.50); %Basophils 0.2 % (0.0-1.0); %Eosinophils 0.2 % (0.0-10.0); %Lymphocytes 7.8 % (21.0-51.0); %Monocytes 8.3 % (0.0-10.0); %Neutrophils 83.5 % (42.0-75.0); Hemoglobin 12.9 g/dL (14.0-18.0); Mean Corpuscular HGB CONC 32.1 g/dL (32.0-36.0); Mean Corpuscular Hemoglobin 29.6 pg (27.0-31.0); Mean Corpuscular Volume 92.1 fL (78.0-98.0); Mean Platelet Volume 8.7 fL (7.4-10.4); Platelet Count 224 thou/uL (130-400); RBC Distribution Width 14.5 % (11.5-14.5); Red Blood Cell (RBC) Count 4.36 mill/uL (4.70-6.10); White Blood Cell (WBC) Count 14.5 thou/uL (4.8-10.8)
[2020-08-16 05:05] LABS: Anion Gap 8 mmol/L (10-20); BUN (Urea Nitrogen) 22 mg/dL (8.4-25.7); Calc. Creatinine Clearance 158 mL/min (70-130); Calcium 8.4 mg/dL (7.8-10.44); Carbon Dioxide 29 mmol/L (22-29); Chloride 108 mmol/L (98-107); Glucose 124 mg/dL (70-105); Potassium 3.8 mmol/L (3.5-5.1); Sodium 141 mmol/L (136-145)
[2020-08-16] MEDS: Mometasone 200 MCG/Formoterol 5 MCG 120 PUFF INHALER INH SCH ×2 (07:46→18:52)
[2020-08-16] MEDS: Enoxaparin Sodium 100 MG/ML SYRINGE SC SCH ×2 (08:19→20:19)
[2020-08-16] MEDS: Dexamethasone 4 mg/ml Vial SLOW IVP SCH ×2 (08:19→20:18)
[2020-08-16] MEDS: Famotidine/PF 20 mg/2ml Vial SLOW IVP SCH ×2 (08:19→20:18)
[2020-08-16] MEDS: Cefepime 1 GM in Sodium Chloride 0.9% 100 ML IVPB SCH ×2 (08:20→20:19)
[2020-08-16] MEDS: risperiDONE 1 MG TAB PO SCH ×2 (08:23→20:18)
[2020-08-16] MEDS: Multivit, Therapeutic 1 TAB PO SCH (08:23)
[2020-08-16] MEDS: Lisinopril 10 MG TAB PER TUBE SCH ×2 (08:23→08:27)
[2020-08-16] MEDS: Colchicine 0.6 MG TAB PO SCH ×2 (08:26→20:18)
[2020-08-16] MEDS: Amitriptyline HCl 25 MG TAB PO SCH (20:18)
[2020-08-16] MEDS: Lactated Ringer's 1,000 ML IV SCH (20:52)
[2020-08-17] MEDS: Propofol 1,000 MG/100 ML VIAL IV PRN ×4 (04:03→21:29)
[2020-08-17] MEDS ORDERED: Fentanyl CADD 100 ML ONE ×2 (04:17→22:21)
[2020-08-17 05:29] LABS: #Basophils 0.1 thou/uL (0.0-0.2); #Lymphocytes 1.1 thou/uL (1.20-3.40); #Monocytes 1.3 thou/uL (0.11-0.59); #Neutrophils 11.6 thou/uL (1.40-6.50); %Basophils 0.4 % (0.0-1.0); %Eosinophils 0.2 % (0.0-10.0); %Lymphocytes 7.5 % (21.0-51.0); %Neutrophils 82.9 % (42.0-75.0); Mean Corpuscular HGB CONC 33.6 g/dL (32.0-36.0); Mean Corpuscular Volume 92.2 fL (78.0-98.0); Platelet Count 193 thou/uL (130-400); RBC Distribution Width 14.5 % (11.5-14.5); Red Blood Cell (RBC) Count 4.21 mill/uL (4.70-6.10)
[2020-08-17 05:44] LABS: Anion Gap 12 mmol/L (10-20); BUN (Urea Nitrogen) 19 mg/dL (8.4-25.7); Calc. Creatinine Clearance 152 mL/min (70-130); Calcium 8.6 mg/dL (7.8-10.44); Carbon Dioxide 26 mmol/L (22-29); Chloride 108 mmol/L (98-107); Glucose 107 mg/dL (70-105); Potassium 4.4 mmol/L (3.5-5.1); Sodium 142 mmol/L (136-145)
[2020-08-17] MEDS: Mometasone 200 MCG/Formoterol 5 MCG 120 PUFF INHALER INH SCH ×2 (07:39→20:13)
[2020-08-17] MEDS ORDERED: Furosemide 40 MG/4 ML VIAL SLOW IVP SCH (08:30)
[2020-08-17] MEDS ORDERED: Potassium Bicarbonate/Cit Ac 20 MEQ TAB PO SCH (08:45)
[2020-08-17] MEDS: Colchicine 0.6 MG TAB PO SCH ×2 (09:46→21:27)
[2020-08-17] MEDS: Enoxaparin Sodium 100 MG/ML SYRINGE SC SCH ×3 (09:49→21:28)
[2020-08-17] MEDS: Cefepime 1 GM in Sodium Chloride 0.9% 100 ML IVPB SCH ×2 (09:58→21:22)
[2020-08-17] MEDS: Dexamethasone 4 mg/ml Vial SLOW IVP SCH ×2 (10:03→21:27)
[2020-08-17] MEDS: Famotidine/PF 20 mg/2ml Vial SLOW IVP SCH ×2 (10:03→21:27)
[2020-08-17] MEDS: Multivit, Therapeutic 1 TAB PO SCH (10:04)
[2020-08-17] MEDS: risperiDONE 1 MG TAB PO SCH ×2 (10:04→21:26)
[2020-08-17] MEDS: Lisinopril 10 MG TAB PER TUBE SCH (10:05)
[2020-08-17] MEDS: Nystatin 500,000 UNITS/5 ML UDCUP SSP SCH ×4 (13:00→21:27)
[2020-08-17] MEDS: Lactated Ringer's 1,000 ML IV SCH (15:21)
[2020-08-17] MEDS: Amitriptyline HCl 25 MG TAB PO SCH (21:26)
[2020-08-17] MEDS: ALPRAZolam 0.25 MG TAB PO PRN (23:02)
[2020-08-18 04:30] LABS: #Monocytes 1.2 thou/uL (0.11-0.59); #Neutrophils 11.2 thou/uL (1.40-6.50); %Eosinophils 0.1 % (0.0-10.0); %Lymphocytes 7.2 % (21.0-51.0); %Monocytes 8.9 % (0.0-10.0); %Neutrophils 83.9 % (42.0-75.0); Hemoglobin 12.8 g/dL (14.0-18.0); Mean Corpuscular HGB CONC 33.7 g/dL (32.0-36.0); Mean Corpuscular Hemoglobin 31.2 pg (27.0-31.0); Mean Corpuscular Volume 92.5 fL (78.0-98.0); Mean Platelet Volume 9.1 fL (7.4-10.4); Platelet Count 168 thou/uL (130-400); RBC Distribution Width 14.6 % (11.5-14.5); Red Blood Cell (RBC) Count 4.11 mill/uL (4.70-6.10); White Blood Cell (WBC) Count 13.3 thou/uL (4.8-10.8)
[2020-08-18 04:48] LABS: Anion Gap 8 mmol/L (10-20); BUN (Urea Nitrogen) 24 mg/dL (8.4-25.7); Calc. Creatinine Clearance 174 mL/min (70-130); Calcium 8.7 mg/dL (7.8-10.44); Carbon Dioxide 30 mmol/L (22-29); Chloride 105 mmol/L (98-107); Glucose 138 mg/dL (70-105); Potassium 4.3 mmol/L (3.5-5.1); Sodium 139 mmol/L (136-145)
[2020-08-18] MEDS: Mometasone 200 MCG/Formoterol 5 MCG 120 PUFF INHALER INH SCH ×2 (06:37→18:49)
[2020-08-18 06:49] LABS: Actual Bicarbonate (HCO3a) 23.2 mEq/L (22-28); Base Excess (BEa) 0.3 mEq/L (-2.0 to +3.0); CO2 Tension 32.5 mmHg (35.0-45.0); Calcium, Ionized (arterial) 1.14 mmol/L (1.12-1.30); Carboxyhemoglobin (COHb) 1.6 gm% (0.0-3.0); Hemoglobin (Hb) 13.5 g/dL (14.0-18.0); Potassium - ABG Lab 3.73 mmol/L (3.70-5.30); pH, Arterial 7.47 (7.35-7.45)
[2020-08-18 07:16] LABS: O2 Tension (PaO2), arterial 52.2 mmHg (80.0-100.0); Puncture Site LRA
[2020-08-18 07:17] LABS: ALV-art Gradient 156.725 mmHg (0-20)
[2020-08-18] MEDS: Lisinopril 10 MG TAB PER TUBE SCH (07:39)
[2020-08-18] MEDS: Enoxaparin Sodium 100 MG/ML SYRINGE SC SCH ×3 (07:39→20:41)
[2020-08-18] MEDS: Colchicine 0.6 MG TAB PO SCH ×2 (07:39→20:41)
[2020-08-18] MEDS: Multivit, Therapeutic 1 TAB PO SCH (07:40)
[2020-08-18] MEDS: risperiDONE 1 MG TAB PO SCH ×3 (07:40→20:41)
[2020-08-18] MEDS: Famotidine/PF 20 mg/2ml Vial SLOW IVP SCH ×2 (07:41→20:41)
[2020-08-18] MEDS: Cefepime 1 GM in Sodium Chloride 0.9% 100 ML IVPB SCH ×2 (07:41→20:40)
[2020-08-18] MEDS: Dexamethasone 4 mg/ml Vial SLOW IVP SCH ×2 (07:41→20:41)
[2020-08-18] MEDS: Nystatin 500,000 UNITS/5 ML UDCUP SSP SCH ×3 (07:41→15:11)
[2020-08-18] MEDS: Sodium Chloride 0.9% 1,000 ML IV SCH (09:24)
[2020-08-18] MEDS ORDERED: HYDROcodone/Acetaminophen 5/325 mg Tablet PO SCH ×2 (10:30→21:00)
[2020-08-18] MEDS ORDERED: HYDROCODONE BITARTRATE 60 MG PO SCH (11:00)
[2020-08-18] MEDS: Fentanyl 100 MCG/2 ML VIAL SLOW IVP PRN (15:04)
[2020-08-18] MEDS: Fluconazole 100 MG TAB PO SCH (15:08)
[2020-08-18] MEDS: Amitriptyline HCl 25 MG TAB PO SCH (20:42)
[2020-08-18] MEDS ORDERED: Amitriptyline HCl 10 MG TAB PO SCH (21:00)
[2020-08-19] MEDS: Fentanyl 100 MCG/2 ML VIAL SLOW IVP PRN ×2 (00:07→07:47)
[2020-08-19 04:34] LABS: Anion Gap 12 mmol/L (10-20); BUN (Urea Nitrogen) 22 mg/dL (8.4-25.7); Calc. Creatinine Clearance 168 mL/min (70-130); Calcium 8.1 mg/dL (7.8-10.44); Carbon Dioxide 25 mmol/L (22-29); Chloride 104 mmol/L (98-107); Glucose 122 mg/dL (70-105); Potassium 3.7 mmol/L (3.5-5.1); Sodium 137 mmol/L (136-145)
[2020-08-19 04:39] LABS: Hemoglobin 12.8 g/dL (14.0-18.0); Mean Corpuscular HGB CONC 33.1 g/dL (32.0-36.0); Mean Corpuscular Hemoglobin 30.5 pg (27.0-31.0); Mean Corpuscular Volume 92.2 fL (78.0-98.0); Mean Platelet Volume 8.7 fL (7.4-10.4); Platelet Count 174 thou/uL (130-400); RBC Distribution Width 14.7 % (11.5-14.5); White Blood Cell (WBC) Count 13.2 thou/uL (4.8-10.8)
[2020-08-19] MEDS: Sodium Chloride 0.9% 1,000 ML IV SCH (04:49)
[2020-08-19 05:26] LABS: Band 17 % (5-11); Lymphocytes 4 % (21-51); MDiff Complete? YES; Monocytes 7 % (0-10); Neutrophil 71 % (42-75); Reactive Lymphocytes 1 % (0-10)
[2020-08-19] MEDS: Mometasone 200 MCG/Formoterol 5 MCG 120 PUFF INHALER INH SCH ×2 (07:45→18:37)
[2020-08-19] MEDS ORDERED: HYDROCODONE BITARTRATE 60 MG PO SCH (09:00)
[2020-08-19] MEDS ORDERED: Loperamide HCl 2 MG CAP PO SCH (09:30)
[2020-08-19] MEDS: Multivit, Therapeutic 1 TAB PO SCH (10:41)
[2020-08-19] MEDS: Lisinopril 10 MG TAB PER TUBE SCH (10:41)
[2020-08-19] MEDS: Famotidine/PF 20 mg/2ml Vial SLOW IVP SCH ×2 (10:42→21:42)
[2020-08-19] MEDS: Dexamethasone 4 mg/ml Vial SLOW IVP SCH ×2 (10:42→21:43)
[2020-08-19] MEDS: Cefepime 1 GM in Sodium Chloride 0.9% 100 ML IVPB SCH ×2 (10:43→21:44)
[2020-08-19] MEDS: Enoxaparin Sodium 40 MG/0.4 ML SYRINGE SC SCH ×2 (10:44→21:43)
[2020-08-19] MEDS: HYDROCODONE BITARTRATE 60 MG PO SCH (10:45)
[2020-08-19] MEDS: traMADol HCl 50 MG TAB PO PRN ×2 (12:33→21:41)
[2020-08-19] MEDS: Fluconazole 100 MG TAB PO SCH (14:49)
[2020-08-19] MEDS: HYDROcodone/Acetaminophen 5/325 mg Tablet PO PRN (17:47)
[2020-08-19] MEDS: Enoxaparin Sodium 100 MG/ML SYRINGE SC SCH (20:52)
[2020-08-19] MEDS ORDERED: risperiDONE 0.25 MG TAB PO SCH (21:00)
[2020-08-19] MEDS: Amitriptyline HCl 25 MG TAB PO SCH (21:41)
[2020-08-19] MEDS: ALPRAZolam 0.25 MG TAB PO PRN (23:31)
[2020-08-20] MEDS: Sodium Chloride 0.9% 1,000 ML IV SCH (01:29)
[2020-08-20] MEDS: Mometasone 200 MCG/Formoterol 5 MCG 120 PUFF INHALER INH SCH ×2 (07:45→18:59)
[2020-08-20] MEDS: Dexamethasone 4 mg/ml Vial SLOW IVP SCH ×3 (07:58→22:21)
[2020-08-20] MEDS: Lisinopril 10 MG TAB PER TUBE SCH (07:58)
[2020-08-20] MEDS: Famotidine/PF 20 mg/2ml Vial SLOW IVP SCH (07:58)
[2020-08-20] MEDS: Multivit, Therapeutic 1 TAB PO SCH (07:58)
[2020-08-20] MEDS: Cefepime 1 GM in Sodium Chloride 0.9% 100 ML IVPB SCH (07:59)
[2020-08-20] MEDS: Enoxaparin Sodium 40 MG/0.4 ML SYRINGE SC SCH ×2 (07:59→22:20)
[2020-08-20] MEDS: HYDROCODONE BITARTRATE 60 MG PO SCH (08:25)
[2020-08-20] MEDS: traMADol HCl 50 MG TAB PO PRN (09:52)
[2020-08-20] MEDS: Fluconazole 100 MG TAB PO SCH (15:47)
[2020-08-20] MEDS: HYDROcodone/Acetaminophen 5/325 mg Tablet PO PRN (22:19)
[2020-08-20] MEDS: Famotidine 20 MG TAB PO SCH (22:19)
[2020-08-20] MEDS: ALPRAZolam 0.25 MG TAB PO PRN (22:19)
[2020-08-20] MEDS: Amitriptyline HCl 25 MG TAB PO SCH (22:19)
[2020-08-21] MEDS: Mometasone 200 MCG/Formoterol 5 MCG 120 PUFF INHALER INH SCH ×2 (07:51→19:23)
[2020-08-21] MEDS: Dexamethasone 4 mg/ml Vial SLOW IVP SCH (08:37)
[2020-08-21] MEDS: Lisinopril 10 MG TAB PER TUBE SCH (08:38)
[2020-08-21] MEDS: Multivit, Therapeutic 1 TAB PO SCH (08:38)
[2020-08-21] MEDS: Famotidine 20 MG TAB PO SCH ×2 (08:38→21:04)
[2020-08-21] MEDS: Enoxaparin Sodium 40 MG/0.4 ML SYRINGE SC SCH ×2 (08:39→21:03)
[2020-08-21] MEDS: HYDROCODONE BITARTRATE 60 MG PO SCH (09:06)
[2020-08-21] MEDS: traMADol HCl 50 MG TAB PO PRN (10:01)
[2020-08-21] MEDS: HYDROcodone/Acetaminophen 5/325 mg Tablet PO PRN ×2 (12:27→21:04)
[2020-08-21] MEDS: ALPRAZolam 0.25 MG TAB PO PRN (21:04)
[2020-08-21] MEDS: Amitriptyline HCl 25 MG TAB PO SCH (21:05)
[2020-08-22 03:47] LABS: Anion Gap 8 mmol/L (10-20); BUN (Urea Nitrogen) 17 mg/dL (8.4-25.7); Calc. Creatinine Clearance 175 mL/min (70-130); Calcium 8.4 mg/dL (7.8-10.44); Carbon Dioxide 28 mmol/L (22-29); Chloride 102 mmol/L (98-107); Glucose 98 mg/dL (70-105); Magnesium 1.7 mg/dL (1.6-2.6); Potassium 3.5 mmol/L (3.5-5.1); Sodium 134 mmol/L (136-145)
[2020-08-22 03:50] LABS: #Eosinphils 0.1 thou/uL (0.0-0.7); #Lymphocytes 2.2 thou/uL (1.20-3.40); #Monocytes 1.3 thou/uL (0.11-0.59); #Neutrophils 9.6 thou/uL (1.40-6.50); %Basophils 0.1 % (0.0-1.0); %Eosinophils 0.5 % (0.0-10.0); %Lymphocytes 16.4 % (21.0-51.0); %Monocytes 9.9 % (0.0-10.0); Hemoglobin 13.6 g/dL (14.0-18.0); Mean Corpuscular HGB CONC 34.2 g/dL (32.0-36.0); Mean Corpuscular Hemoglobin 31.6 pg (27.0-31.0); Mean Corpuscular Volume 92.5 fL (78.0-98.0); Mean Platelet Volume 8.7 fL (7.4-10.4); Platelet Count 150 thou/uL (130-400); RBC Distribution Width 14.7 % (11.5-14.5); Red Blood Cell (RBC) Count 4.29 mill/uL (4.70-6.10); White Blood Cell (WBC) Count 13.2 thou/uL (4.8-10.8)
[2020-08-22] MEDS: Mometasone 200 MCG/Formoterol 5 MCG 120 PUFF INHALER INH SCH ×2 (06:54→18:46)
[2020-08-22] MEDS: Multivit, Therapeutic 1 TAB PO SCH (09:13)
[2020-08-22] MEDS: Dexamethasone 4 MG TAB PO SCH (09:13)
[2020-08-22] MEDS: Enoxaparin Sodium 40 MG/0.4 ML SYRINGE SC SCH ×2 (09:14→21:14)
[2020-08-22] MEDS: Famotidine 20 MG TAB PO SCH ×2 (09:14→22:24)
[2020-08-22] MEDS: HYDROCODONE BITARTRATE 60 MG PO SCH (09:20)
[2020-08-22] MEDS ORDERED: Milk Of Magnesia 30 ML UDCUP PO PRN (10:29)
[2020-08-22] MEDS: Polyethylene Glycol 3350 17 GM Packet PO SCH (11:05)
[2020-08-22] MEDS: Docusate 100 MG CAP PO SCH ×2 (11:05→21:15)
[2020-08-22] MEDS: traMADol HCl 50 MG TAB PO PRN ×2 (11:06→22:25)
[2020-08-22] MEDS ORDERED: Iopamidol 370 76% 100 ML VIAL ONE (12:35)
[2020-08-22] MEDS: VANCOMYCIN 1.75 GM/350 ML BAG 1.75 GM in Premix Bag 1 BAG IVPB SCH (14:21)
[2020-08-22 14:23] LABS: PTT 29.4 sec (22.9-36.1); Prothrombin Time 13.6 sec (12.0-14.7)
[2020-08-22] MEDS: HYDROcodone/Acetaminophen 5/325 mg Tablet PO PRN ×2 (15:11→21:15)
[2020-08-22] MEDS ORDERED: Sodium Bicarbonate 2.5 MEQ/5 ML VIAL ONE (15:14)
[2020-08-22] MEDS: ALPRAZolam 0.25 MG TAB PO PRN ×2 (16:04→21:20)
[2020-08-22 16:05] LABS: RBC Count-Automated (BF) 98244 /cu.mm; WBC/Nucleated-Auto (BF) 17795 uL
[2020-08-22 16:07] LABS: Pleural Fluid, Protein 3.9 g/dL
[2020-08-22 16:20] LABS: BF Color Pink; Body Fluid Source Pleural Fluid; Clarity Cloudy/Turbid (Clear); Tube # EDTA
[2020-08-22 16:23] LABS: BF Segmented Neutrophils 66 %; Cell Count Non Hematic 25 %; Lymphocytes 9 %
[2020-08-22] MEDS: Piperacillin/Tazobactam 3.375 GM in Sodium Chloride 0.9% 100 ML IVPB SCH ×2 (17:53→23:24)
[2020-08-22] MEDS: Amitriptyline HCl 25 MG TAB PO SCH (21:16)
[2020-08-22] MEDS ORDERED: Fentanyl 100 MCG/2 ML VIAL SLOW IVP SCH ×2 (23:00→23:15)
[2020-08-23] MEDS: VANCOMYCIN 1.75 GM/350 ML BAG 1.75 GM in Premix Bag 1 BAG IVPB SCH ×2 (01:46→14:13)
[2020-08-23] MEDS: HYDROcodone/Acetaminophen 5/325 mg Tablet PO PRN ×2 (01:47→05:37)
[2020-08-23] MEDS: ALPRAZolam 0.25 MG TAB PO PRN ×2 (01:48→21:07)
[2020-08-23] MEDS ORDERED: Furosemide 40 MG/4 ML VIAL ONE (01:58)
[2020-08-23] MEDS ORDERED: Furosemide 40 MG/4 ML VIAL SLOW IVP SCH (02:00)
[2020-08-23 04:10] LABS: Anion Gap 16 mmol/L (10-20); BUN (Urea Nitrogen) 26 mg/dL (8.4-25.7); Calc. Creatinine Clearance 121 mL/min (70-130); Calcium 8.5 mg/dL (7.8-10.44); Carbon Dioxide 19 mmol/L (22-29); Chloride 102 mmol/L (98-107); Glucose 227 mg/dL (70-105); Magnesium 1.6 mg/dL (1.6-2.6); Potassium 3.6 mmol/L (3.5-5.1); Sodium 133 mmol/L (136-145)
[2020-08-23] MEDS: Piperacillin/Tazobactam 3.375 GM in Sodium Chloride 0.9% 100 ML IVPB SCH ×4 (05:38→23:52)
[2020-08-23] MEDS: Mometasone 200 MCG/Formoterol 5 MCG 120 PUFF INHALER INH SCH ×2 (07:18→19:44)
[2020-08-23] MEDS ORDERED: Norepinephrine 8 MG/0.9% NS 250 ML ONE ×2 (09:24→14:14)
[2020-08-23 09:42] LABS: Fluid, pH - Pleural Fld Less than 7.00 (7.60 - 7.66)
[2020-08-23 09:42] LABS: Actual Bicarbonate (HCO3a) 16.1 mEq/L (22-28); Base Excess (BEa) -9.3 mEq/L (-2.0 to +3.0); CO2 Tension 34.4 mmHg (35.0-45.0); Calcium, Ionized (arterial) 1.15 mmol/L (1.12-1.30); Carboxyhemoglobin (COHb) 0.7 gm% (0.0-3.0); O2 Tension (PaO2), arterial 88.5 mmHg (80.0-100.0); Potassium - ABG Lab 3.71 mmol/L (3.70-5.30); pH, Arterial 7.29 (7.35-7.45)
[2020-08-23 09:43] LABS: Puncture Site LBA
[2020-08-23] MEDS ORDERED: Propofol 1,000 MG/100 ML VIAL IV ONE (09:52)
[2020-08-23] MEDS: Propofol 1,000 MG/100 ML VIAL IV PRN ×3 (09:52→23:51)
[2020-08-23] MEDS: Docusate 100 MG CAP PO SCH ×2 (10:06→20:56)
[2020-08-23] MEDS: Dexamethasone 4 MG TAB PO SCH (10:06)
[2020-08-23] MEDS: Polyethylene Glycol 3350 17 GM Packet PO SCH (10:07)
[2020-08-23] MEDS: HYDROCODONE BITARTRATE 60 MG PO SCH (10:07)
[2020-08-23] MEDS: Multivit, Therapeutic 1 TAB PO SCH (10:07)
[2020-08-23] MEDS: Famotidine 20 MG TAB PO SCH ×2 (10:07→20:20)
[2020-08-23] MEDS ORDERED: Rocuronium Bromide 10 MG/ML (10ML VIAL) ONE (11:45)
[2020-08-23] MEDS ORDERED: Lorazepam 2 MG/ML VIAL ONE (12:52)
[2020-08-23] MEDS: Lorazepam 2 MG/ML VIAL SLOW IVP PRN (12:54)
[2020-08-23] MEDS ORDERED: DISCONTINUE PREVIOUS NARCOTIC PAIN MEDICATIONS AND BENZODIAZEPINES FS SCH (13:00)
[2020-08-23] MEDS ORDERED: Fentanyl BOLUS 250 ML IVPB PRN (13:00)
[2020-08-23] MEDS ORDERED: Propofol BOLUS 1,000 MG/100 ML VIAL IV PRN (13:00)
[2020-08-23] MEDS ORDERED: Fentanyl CADD 100 ML ONE (13:58)
[2020-08-23] MEDS: Fentanyl CADD 100 ML IV SCH (14:06)
[2020-08-23] MEDS: Enoxaparin Sodium 40 MG/0.4 ML SYRINGE SC SCH ×2 (14:11→20:54)
[2020-08-23] MEDS ORDERED: Rocuronium Bromide 50 MG/5 ML VIAL IVP SCH (14:30)
[2020-08-23] MEDS: Vasopressin 20 UNIT, Admixture Fee 1 EACH in Sodium Chloride 0.9% 50 ML IV SCH ×2 (16:49→23:51)
[2020-08-23] MEDS: Norepinephrine 8 MG/0.9% NS 250 ML IVPB SCH ×2 (16:49→20:19)
[2020-08-23 17:06] LABS: Hemoglobin 17.7 g/dL (14.0-18.0); Mean Corpuscular HGB CONC 33.2 g/dL (32.0-36.0); Mean Corpuscular Hemoglobin 31.1 pg (27.0-31.0); Mean Corpuscular Volume 93.4 fL (78.0-98.0); Mean Platelet Volume 9.5 fL (7.4-10.4); Platelet Count 230 thou/uL (130-400); RBC Distribution Width 15.6 % (11.5-14.5); Red Blood Cell (RBC) Count 5.71 mill/uL (4.70-6.10); White Blood Cell (WBC) Count 30.8 thou/uL (4.8-10.8)
[2020-08-23 17:40] LABS: Band 77 % (5-11); Lymphocytes 4 % (21-51); MDiff Complete? YES; Monocytes 4 % (0-10); Neutrophil 12 % (42-75); Platelet Morphology Comment Appears Adequate; Polychromasia SLIGHT = 2-3 cells (100X) (0-2/hpf); Reactive Lymphocytes 3 % (0-10)
[2020-08-23] MEDS ORDERED: Lactated Ringer's 1,000 ML IV SCH (18:30)
[2020-08-23] MEDS: Hydrocortisone Sod Succ/PF 100 mg/2 ml Vial IVP SCH (20:20)
[2020-08-23] MEDS ORDERED: Lidocaine 1% (PF) 30 ML VIAL ONE (20:28)
[2020-08-23] MEDS: Amitriptyline HCl 25 MG TAB PO SCH (20:53)
[2020-08-23] MEDS: Lactated Ringer's 1,000 ML IV SCH (23:54)
[2020-08-24 01:00] LABS: Vancomycin, Trough 39.8 ug/mL
[2020-08-24] MEDS: VANCOMYCIN 1.75 GM/350 ML BAG 1.75 GM in Premix Bag 1 BAG IVPB SCH (01:35)
[2020-08-24] MEDS: Hydrocortisone Sod Succ/PF 100 mg/2 ml Vial IVP SCH ×4 (02:31→20:50)
[2020-08-24] MEDS: Norepinephrine 8 MG/0.9% NS 250 ML IVPB SCH ×2 (02:31→14:38)
[2020-08-24] MEDS: Acetaminophen 500 MG TAB PO PRN ×2 (02:32→10:28)
[2020-08-24 03:58] LABS: Legionella Urinary Ag Negative (Negative); Strep pneumo Urine Ag NEGATIVE (NEGATIVE)
[2020-08-24 04:02] LABS: Anion Gap 16 mmol/L (10-20); BUN (Urea Nitrogen) 40 mg/dL (8.4-25.7); Calc. Creatinine Clearance 63 mL/min (70-130); Calcium 7.9 mg/dL (7.8-10.44); Carbon Dioxide 18 mmol/L (22-29); Chloride 106 mmol/L (98-107); Glucose 211 mg/dL (70-105); Magnesium 1.7 mg/dL (1.6-2.6); Potassium 4.4 mmol/L (3.5-5.1); Sodium 136 mmol/L (136-145)
[2020-08-24 04:05] LABS: Band 25 % (5-11); Hemoglobin 15.9 g/dL (14.0-18.0); Lymphocytes 5 % (21-51); MDiff Complete? YES; Mean Corpuscular HGB CONC 33.8 g/dL (32.0-36.0); Mean Corpuscular Hemoglobin 31.6 pg (27.0-31.0); Mean Corpuscular Volume 93.4 fL (78.0-98.0); Mean Platelet Volume 8.7 fL (7.4-10.4); Monocytes 2 % (0-10); Neutrophil 67 % (42-75); Platelet Count 183 thou/uL (130-400); RBC Distribution Width 15.6 % (11.5-14.5); Red Blood Cell (RBC) Count 5.03 mill/uL (4.70-6.10); White Blood Cell (WBC) Count 26.1 thou/uL (4.8-10.8)
[2020-08-24] MEDS: Propofol 1,000 MG/100 ML VIAL IV PRN ×3 (05:47→18:40)
[2020-08-24] MEDS: Vasopressin 20 UNIT, Admixture Fee 1 EACH in Sodium Chloride 0.9% 50 ML IV SCH (05:48)
[2020-08-24] MEDS: Piperacillin/Tazobactam 3.375 GM in Sodium Chloride 0.9% 100 ML IVPB SCH ×4 (05:49→23:46)
[2020-08-24] MEDS: Mometasone 200 MCG/Formoterol 5 MCG 120 PUFF INHALER INH SCH ×2 (06:40→19:27)
[2020-08-24 06:46] LABS: Actual Bicarbonate (HCO3a) 16.8 mEq/L (22-28); Base Excess (BEa) -7.6 mEq/L (-2.0 to +3.0); CO2 Tension 31.7 mmHg (35.0-45.0); Calcium, Ionized (arterial) 1.13 mmol/L (1.12-1.30); Carboxyhemoglobin (COHb) 1.1 gm% (0.0-3.0); Hemoglobin (Hb) 15.1 g/dL (14.0-18.0); O2 Tension (PaO2), arterial 81.1 mmHg (80.0-100.0); pH, Arterial 7.34 (7.35-7.45)
[2020-08-24 06:52] LABS: Puncture Site Arterial Line
[2020-08-24 06:53] LABS: ALV-art Gradient 200.125 mmHg (0-20)
[2020-08-24] MEDS: Multivit, Therapeutic 1 TAB PO SCH (08:46)
[2020-08-24] MEDS: Enoxaparin Sodium 40 MG/0.4 ML SYRINGE SC SCH ×2 (08:46→20:50)
[2020-08-24] MEDS: Famotidine 20 MG TAB PO SCH ×2 (08:46→20:50)
[2020-08-24] MEDS: Docusate 100 MG CAP PO SCH ×2 (08:46→20:52)
[2020-08-24] MEDS: Polyethylene Glycol 3350 17 GM Packet PO SCH (08:46)
[2020-08-24] MEDS: HYDROCODONE BITARTRATE 60 MG PO SCH (08:47)
[2020-08-24] MEDS ORDERED: Fentanyl CADD 100 ML ONE (08:50)
[2020-08-24] MEDS: Fentanyl CADD 100 ML IV SCH (08:53)
[2020-08-24] MEDS ORDERED: Azithromycin 500 MG in Syringe 0 ML IVPB SCH (10:30)
[2020-08-24] MEDS ORDERED: Azithromycin 500 MG in Sodium Chloride 0.9% 250 ML 250 ML IVPB SCH (11:00)
[2020-08-24] MEDS: Micafungin 100 MG in Sodium Chloride 0.9% 100 ML IVPB SCH (16:46)
[2020-08-24] MEDS: Lactated Ringer's 1,000 ML IV SCH (16:56)
[2020-08-24] MEDS: Amitriptyline HCl 25 MG TAB PO SCH (20:51)
[2020-08-24] MEDS: ALPRAZolam 0.25 MG TAB PO PRN (20:51)
[2020-08-24] MEDS ORDERED: VANCOMYCIN 1.75 GM/350 ML BAG 1.75 GM in Premix Bag 1 BAG IVPB SCH ×2 (21:00→23:00)
[2020-08-24 22:06] LABS: Vancomycin, Random 6.9 ug/mL (See Comment)
[2020-08-25] MEDS: Propofol 1,000 MG/100 ML VIAL IV PRN ×5 (01:15→21:39)
[2020-08-25] MEDS ORDERED: Fentanyl CADD 100 ML ONE ×2 (01:18→15:00)
[2020-08-25] MEDS: Fentanyl CADD 100 ML IV SCH ×2 (01:21→15:32)
[2020-08-25] MEDS: Hydrocortisone Sod Succ/PF 100 mg/2 ml Vial IVP SCH (01:49)
[2020-08-25] MEDS: Piperacillin/Tazobactam 3.375 GM in Sodium Chloride 0.9% 100 ML IVPB SCH ×3 (05:05→18:38)
[2020-08-25] MEDS: ALPRAZolam 0.25 MG TAB PO PRN (05:05)
[2020-08-25] MEDS: Mometasone 200 MCG/Formoterol 5 MCG 120 PUFF INHALER INH SCH ×2 (07:02→18:20)
[2020-08-25 08:10] LABS: Actual Bicarbonate (HCO3a) 22.6 mEq/L (22-28); Base Excess (BEa) -1.9 mEq/L (-2.0 to +3.0); CO2 Tension 37.6 mmHg (35.0-45.0); Calcium, Ionized (arterial) 1.19 mmol/L (1.12-1.30); Carboxyhemoglobin (COHb) 1.1 gm% (0.0-3.0); Hemoglobin (Hb) 13.8 g/dL (14.0-18.0); O2 Tension (PaO2), arterial 102.7 mmHg (80.0-100.0); Potassium - ABG Lab 3.31 mmol/L (3.70-5.30)
[2020-08-25 08:20] LABS: Puncture Site Arterial Line
[2020-08-25] MEDS ORDERED: Albumin 25% 25 GM/100 ML BOT IVPB SCH (09:26)
[2020-08-25] MEDS: Enoxaparin Sodium 40 MG/0.4 ML SYRINGE SC SCH ×2 (09:58→20:11)
[2020-08-25] MEDS: Multivit, Therapeutic 1 TAB PO SCH (10:06)
[2020-08-25] MEDS: Docusate 100 MG CAP PO SCH (10:06)
[2020-08-25] MEDS: Famotidine 20 MG TAB PO SCH ×2 (10:06→20:10)
[2020-08-25] MEDS: Polyethylene Glycol 3350 17 GM Packet PO SCH (10:07)
[2020-08-25] MEDS: HYDROCODONE BITARTRATE 60 MG PO SCH (10:07)
[2020-08-25] MEDS ORDERED: Dextrose 5% in Water 1,000 ML IV PRN (10:30)
[2020-08-25] MEDS ORDERED: HumaLOG 300 UNITS/3 ML VIAL SC PRN ×2 (10:30)
[2020-08-25] MEDS ORDERED: Dextrose 50% Abboject 50 ML SYRINGE IVP PRN (10:30)
[2020-08-25] MEDS ORDERED: traMADol HCl 50 MG TAB PO PRN (12:49)
[2020-08-25] MEDS: Lactated Ringer's 1,000 ML IV SCH (16:10)
[2020-08-25] MEDS: Micafungin 100 MG in Sodium Chloride 0.9% 100 ML IVPB SCH (16:24)
[2020-08-25] MEDS: Lorazepam 2 MG/ML VIAL SLOW IVP PRN (17:48)
[2020-08-25] MEDS: Linezolid 600 MG in Premix Bag 1 BAG IVPB SCH (20:10)
[2020-08-25] MEDS: Docusate Sodium 100 MG/10 ML UDCUP PER TUBE SCH (20:10)
[2020-08-25] MEDS: Dexamethasone 4 mg/ml Vial SLOW IVP SCH (20:11)
[2020-08-25] MEDS: Amitriptyline HCl 25 MG TAB PO SCH (20:11)
[2020-08-26] MEDS: Piperacillin/Tazobactam 3.375 GM in Sodium Chloride 0.9% 100 ML IVPB SCH ×4 (00:43→17:35)
[2020-08-26] MEDS: Propofol 1,000 MG/100 ML VIAL IV PRN (01:19)
[2020-08-26] MEDS: Lorazepam 2 MG/ML VIAL SLOW IVP PRN ×2 (01:19→03:01)
[2020-08-26] MEDS ORDERED: Fentanyl CADD 100 ML ONE (04:11)
[2020-08-26] MEDS: Fentanyl CADD 100 ML IV SCH (04:17)
[2020-08-26 04:52] LABS: Anion Gap 11 mmol/L (10-20); BUN (Urea Nitrogen) 23 mg/dL (8.4-25.7); Calc. Creatinine Clearance 193 mL/min (70-130); Calcium 8.7 mg/dL (7.8-10.44); Carbon Dioxide 27 mmol/L (22-29); Chloride 104 mmol/L (98-107); Glucose 185 mg/dL (70-105); Potassium 3.7 mmol/L (3.5-5.1); Sodium 138 mmol/L (136-145)
[2020-08-26 05:54] LABS: #Basophils 0.1 thou/uL (0.0-0.2); #Lymphocytes 0.5 thou/uL (1.20-3.40); #Monocytes 0.4 thou/uL (0.11-0.59); #Neutrophils 10.5 thou/uL (1.40-6.50); %Basophils 1.2 % (0.0-1.0); %Eosinophils 0.1 % (0.0-10.0); %Lymphocytes 4.2 % (21.0-51.0); %Monocytes 3.4 % (0.0-10.0); Hemoglobin 12.1 g/dL (14.0-18.0); Mean Corpuscular HGB CONC 32.1 g/dL (32.0-36.0); Mean Corpuscular Hemoglobin 29.9 pg (27.0-31.0); Mean Corpuscular Volume 93.3 fL (78.0-98.0); Mean Platelet Volume 9.2 fL (7.4-10.4); Platelet Count 115 thou/uL (130-400); Platelet Morphology Comment Appears Decreased; RBC Distribution Width 15.1 % (11.5-14.5); Red Blood Cell (RBC) Count 4.05 mill/uL (4.70-6.10); White Blood Cell (WBC) Count 11.5 thou/uL (4.8-10.8)
[2020-08-26] MEDS: Mometasone 200 MCG/Formoterol 5 MCG 120 PUFF INHALER INH SCH ×2 (06:43→18:34)
[2020-08-26 07:37] LABS: Actual Bicarbonate (HCO3a) 23.8 mEq/L (22-28); Base Excess (BEa) -0.1 mEq/L (-2.0 to +3.0); CO2 Tension 36.2 mmHg (35.0-45.0); Carboxyhemoglobin (COHb) 1.3 gm% (0.0-3.0); Hemoglobin (Hb) 12.4 g/dL (14.0-18.0); O2 Tension (PaO2), arterial 61.7 mmHg (80.0-100.0); Potassium - ABG Lab 3.61 mmol/L (3.70-5.30); pH, Arterial 7.44 (7.35-7.45)
[2020-08-26 07:39] LABS: Puncture Site RRA
[2020-08-26] MEDS ORDERED: DC Sedation Protocol FS ONE (08:39)
[2020-08-26] MEDS: Enoxaparin Sodium 40 MG/0.4 ML SYRINGE SC SCH ×2 (09:11→21:33)
[2020-08-26] MEDS: Famotidine 20 MG TAB PO SCH ×2 (09:11→22:06)
[2020-08-26] MEDS: Dexamethasone 4 mg/ml Vial SLOW IVP SCH ×2 (09:12→21:34)
[2020-08-26] MEDS: Linezolid 600 MG in Premix Bag 1 BAG IVPB SCH ×2 (09:12→21:33)
[2020-08-26] MEDS: Multivit, Therapeutic 1 TAB PO SCH (09:12)
[2020-08-26] MEDS: Polyethylene Glycol 3350 17 GM Packet PO SCH (09:12)
[2020-08-26] MEDS: Docusate Sodium 100 MG/10 ML UDCUP PER TUBE SCH ×2 (09:18→22:06)
[2020-08-26] MEDS ORDERED: Acetaminophen 325 MG TAB PO PRN (09:45)
[2020-08-26] MEDS ORDERED: Fentanyl 100 MCG/2 ML VIAL ONE (15:03)
[2020-08-26] MEDS ORDERED: Fentanyl 100 MCG/2 ML VIAL SLOW IVP PRN (15:28)
[2020-08-26] MEDS ORDERED: Bisacodyl 10 MG SUPP PR PRN (16:38)
[2020-08-26] MEDS: Micafungin 100 MG in Sodium Chloride 0.9% 100 ML IVPB SCH (16:47)
[2020-08-26] MEDS: Fentanyl 100 MCG/2 ML VIAL SLOW IVP PRN (21:36)
[2020-08-26] MEDS: Amitriptyline HCl 25 MG TAB PO SCH (22:06)
[2020-08-26] MEDS ORDERED: Famotidine/PF 20 mg/2ml Vial SLOW IVP SCH (23:00)
[2020-08-26] MEDS: Lactated Ringer's 1,000 ML IV SCH (23:13)
[2020-08-27] MEDS: Piperacillin/Tazobactam 3.375 GM in Sodium Chloride 0.9% 100 ML IVPB SCH ×4 (01:16→18:03)
[2020-08-27 04:31] LABS: #Lymphocytes 0.6 thou/uL (1.20-3.40); #Monocytes 0.6 thou/uL (0.11-0.59); %Eosinophils 0.1 % (0.0-10.0); %Lymphocytes 5.4 % (21.0-51.0); %Monocytes 5.9 % (0.0-10.0); %Neutrophils 88.6 % (42.0-75.0); Hemoglobin 11.1 g/dL (14.0-18.0); Mean Corpuscular HGB CONC 33.9 g/dL (32.0-36.0); Mean Corpuscular Hemoglobin 31.4 pg (27.0-31.0); Mean Corpuscular Volume 92.5 fL (78.0-98.0); Platelet Count 157 thou/uL (130-400); Red Blood Cell (RBC) Count 3.53 mill/uL (4.70-6.10); White Blood Cell (WBC) Count 10.1 thou/uL (4.8-10.8)
[2020-08-27 05:30] LABS: Anion Gap 11 mmol/L (10-20); BUN (Urea Nitrogen) 16 mg/dL (8.4-25.7); Calc. Creatinine Clearance 179 mL/min (70-130); Calcium 8.4 mg/dL (7.8-10.44); Carbon Dioxide 29 mmol/L (22-29); Chloride 107 mmol/L (98-107); Glucose 139 mg/dL (70-105); Potassium 3.5 mmol/L (3.5-5.1); Sodium 143 mmol/L (136-145)
[2020-08-27] MEDS: Fentanyl 100 MCG/2 ML VIAL SLOW IVP PRN (07:39)
[2020-08-27] MEDS: Mometasone 200 MCG/Formoterol 5 MCG 120 PUFF INHALER INH SCH ×2 (07:50→18:11)
[2020-08-27] MEDS: Linezolid 600 MG in Premix Bag 1 BAG IVPB SCH ×2 (08:25→22:08)
[2020-08-27] MEDS: Enoxaparin Sodium 40 MG/0.4 ML SYRINGE SC SCH ×2 (08:26→22:07)
[2020-08-27] MEDS: Dexamethasone 4 mg/ml Vial SLOW IVP SCH (08:26)
[2020-08-27] MEDS: Docusate Sodium 100 MG/10 ML UDCUP PER TUBE SCH ×2 (08:26→22:04)
[2020-08-27] MEDS: Famotidine 20 MG TAB PO SCH ×2 (08:27→22:07)
[2020-08-27] MEDS: Polyethylene Glycol 3350 17 GM Packet PO SCH (08:28)
[2020-08-27] MEDS: Multivit, Therapeutic 1 TAB PO SCH (08:28)
[2020-08-27] MEDS: Lactated Ringer's 1,000 ML IV SCH (08:29)
[2020-08-27] MEDS: HYDROcodone/Acetaminophen 5/325 mg Tablet PO PRN ×2 (13:54→23:54)
[2020-08-27] MEDS: ALPRAZolam 0.25 MG TAB PER TUBE PRN ×2 (14:17→23:56)
[2020-08-27] MEDS: Micafungin 100 MG in Sodium Chloride 0.9% 100 ML IVPB SCH (15:43)
[2020-08-27] MEDS: Amitriptyline HCl 25 MG TAB PO SCH (22:07)
[2020-08-27 22:36] LABS: CMV DNA-PCR Test Negative (Negative)
[2020-08-28] MEDS: Piperacillin/Tazobactam 3.375 GM in Sodium Chloride 0.9% 100 ML IVPB SCH ×5 (00:03→23:57)
[2020-08-28 00:34] LABS: Base Excess (BEa) 3.1 mEq/L (-2.0 to +3.0); CO2 Tension 49.4 mmHg (35.0-45.0); Calcium, Ionized (arterial) 1.15 mmol/L (1.12-1.30); Hemoglobin (Hb) 12.9 g/dL (14.0-18.0); Potassium - ABG Lab 2.92 mmol/L (3.70-5.30); pH, Arterial 7.39 (7.35-7.45)
[2020-08-28 00:35] LABS: O2 Tension (PaO2), arterial 57.6 mmHg (80.0-100.0); Puncture Site RRA
[2020-08-28 05:05] LABS: Anion Gap 10 mmol/L (10-20); BUN (Urea Nitrogen) 13 mg/dL (8.4-25.7); Calc. Creatinine Clearance 214 mL/min (70-130); Calcium 8.4 mg/dL (7.8-10.44); Carbon Dioxide 31 mmol/L (22-29); Chloride 105 mmol/L (98-107); Glucose 110 mg/dL (70-105); Sodium 143 mmol/L (136-145)
[2020-08-28 05:15] LABS: Band 14 % (5-11); Hemoglobin 12.8 g/dL (14.0-18.0); Lymphocytes 1 % (21-51); MDiff Complete? YES; Mean Corpuscular Hemoglobin 31.3 pg (27.0-31.0); Mean Corpuscular Volume 94.9 fL (78.0-98.0); Mean Platelet Volume 7.9 fL (7.4-10.4); Monocytes 7 % (0-10); Neutrophil 78 % (42-75); Platelet Count 206 thou/uL (130-400); RBC Distribution Width 15.3 % (11.5-14.5); Red Blood Cell (RBC) Count 4.08 mill/uL (4.70-6.10); White Blood Cell (WBC) Count 19.3 thou/uL (4.8-10.8)
[2020-08-28] MEDS: Lactated Ringer's 1,000 ML IV SCH (05:29)
[2020-08-28] MEDS ORDERED: Furosemide 40 MG/4 ML VIAL SLOW IVP SCH (05:30)
[2020-08-28] MEDS: Mometasone 200 MCG/Formoterol 5 MCG 120 PUFF INHALER INH SCH ×2 (07:57→18:54)
[2020-08-28] MEDS: Linezolid 600 MG in Premix Bag 1 BAG IVPB SCH ×2 (08:22→21:07)
[2020-08-28] MEDS: Dexamethasone 4 mg/ml Vial SLOW IVP SCH (08:23)
[2020-08-28] MEDS: Enoxaparin Sodium 40 MG/0.4 ML SYRINGE SC SCH ×2 (08:23→21:07)
[2020-08-28] MEDS: Docusate Sodium 100 MG/10 ML UDCUP PER TUBE SCH ×2 (08:24→21:15)
[2020-08-28] MEDS: Polyethylene Glycol 3350 17 GM Packet PO SCH (08:24)
[2020-08-28] MEDS: Famotidine 20 MG TAB PO SCH ×2 (08:24→21:15)
[2020-08-28] MEDS: Multivit, Therapeutic 1 TAB PO SCH (08:24)
[2020-08-28] MEDS: HYDROcodone/Acetaminophen 5/325 mg Tablet PO PRN (09:40)
[2020-08-28] MEDS: ALPRAZolam 0.25 MG TAB PER TUBE PRN ×4 (09:40→23:57)
[2020-08-28] MEDS ORDERED: Electrolyte Replacement Protocol FS PRN (13:30)
[2020-08-28] MEDS ORDERED: Potassium Chloride 40 MEQ in Premix Bag 1 BAG IVPB SCH (14:00)
[2020-08-28] MEDS: Micafungin 100 MG in Sodium Chloride 0.9% 100 ML IVPB SCH (15:37)
[2020-08-28] MEDS: Amitriptyline HCl 25 MG TAB PO SCH (21:15)
[2020-08-28] MEDS: Colchicine 0.3 MG TAB PO SCH (21:16)
[2020-08-29] MEDS: Lactated Ringer's 1,000 ML IV SCH
[2020-08-29 05:13] LABS: #Eosinphils 0.1 thou/uL (0.0-0.7); #Lymphocytes 0.9 thou/uL (1.20-3.40); #Monocytes 0.7 thou/uL (0.11-0.59); #Neutrophils 11.8 thou/uL (1.40-6.50); %Basophils 0.1 % (0.0-1.0); %Eosinophils 0.7 % (0.0-10.0); %Lymphocytes 6.7 % (21.0-51.0); %Monocytes 5.1 % (0.0-10.0); %Neutrophils 87.4 % (42.0-75.0); Hemoglobin 11.6 g/dL (14.0-18.0); Mean Corpuscular HGB CONC 32.2 g/dL (32.0-36.0); Mean Corpuscular Hemoglobin 30.2 pg (27.0-31.0); Mean Corpuscular Volume 93.8 fL (78.0-98.0); Mean Platelet Volume 8.1 fL (7.4-10.4); Platelet Count 227 thou/uL (130-400); RBC Distribution Width 15.2 % (11.5-14.5); Red Blood Cell (RBC) Count 3.83 mill/uL (4.70-6.10); White Blood Cell (WBC) Count 13.5 thou/uL (4.8-10.8)
[2020-08-29] MEDS: Piperacillin/Tazobactam 3.375 GM in Sodium Chloride 0.9% 100 ML IVPB SCH ×4 (05:17→23:48)
[2020-08-29 05:33] LABS: BUN (Urea Nitrogen) 15 mg/dL (8.4-25.7); Calc. Creatinine Clearance 209 mL/min (70-130); Calcium 8.2 mg/dL (7.8-10.44); Glucose 134 mg/dL (70-105)
[2020-08-29 05:42] LABS: Anion Gap 13 mmol/L (10-20); Carbon Dioxide 34 mmol/L (22-29); Chloride 100 mmol/L (98-107); Sodium 144 mmol/L (136-145)
[2020-08-29] MEDS: ALPRAZolam 0.25 MG TAB PER TUBE PRN ×2 (05:42→18:25)
[2020-08-29] MEDS ORDERED: Potassium Chloride 40 MEQ in Premix Bag 1 BAG IVPB SCH (06:00)
[2020-08-29] MEDS: Mometasone 200 MCG/Formoterol 5 MCG 120 PUFF INHALER INH SCH ×2 (07:40→19:03)
[2020-08-29] MEDS: Dexamethasone 4 mg/ml Vial SLOW IVP SCH (09:42)
[2020-08-29] MEDS: Enoxaparin Sodium 40 MG/0.4 ML SYRINGE SC SCH ×2 (09:43→20:11)
[2020-08-29] MEDS: Furosemide 40 MG TAB PO SCH (09:43)
[2020-08-29] MEDS: Famotidine 20 MG TAB PO SCH ×2 (09:43→20:14)
[2020-08-29] MEDS: Docusate Sodium 100 MG/10 ML UDCUP PER TUBE SCH ×2 (09:44→21:28)
[2020-08-29] MEDS: Multivit, Therapeutic 1 TAB PO SCH (09:46)
[2020-08-29] MEDS: Polyethylene Glycol 3350 17 GM Packet PO SCH (09:46)
[2020-08-29] MEDS: Colchicine 0.3 MG TAB PO SCH ×2 (09:46→21:12)
[2020-08-29] MEDS: HYDROcodone/Acetaminophen 5/325 mg Tablet PO PRN ×2 (09:49→16:36)
[2020-08-29] MEDS: Linezolid 600 MG in Premix Bag 1 BAG IVPB SCH ×2 (09:49→20:09)
[2020-08-29] MEDS: Micafungin 100 MG in Sodium Chloride 0.9% 100 ML IVPB SCH (16:33)
[2020-08-29] MEDS: Potassium Bicarbonate/Cit Ac 20 MEQ TAB PO SCH (16:33)
[2020-08-29] MEDS ORDERED: Potassium Bicarbonate/Cit Ac 25 MEQ TAB PO SCH (17:00)
[2020-08-29] MEDS: Amitriptyline HCl 25 MG TAB PO SCH (20:14)
[2020-08-30] MEDS: ALPRAZolam 0.25 MG TAB PER TUBE PRN ×4 (02:35→19:08)
[2020-08-30 04:35] LABS: #Eosinphils 0.1 thou/uL (0.0-0.7); #Monocytes 0.6 thou/uL (0.11-0.59); #Neutrophils 11.5 thou/uL (1.40-6.50); %Eosinophils 0.6 % (0.0-10.0); %Lymphocytes 7.5 % (21.0-51.0); %Monocytes 4.4 % (0.0-10.0); %Neutrophils 87.5 % (42.0-75.0); Hemoglobin 11.5 g/dL (14.0-18.0); Mean Corpuscular HGB CONC 32.8 g/dL (32.0-36.0); Mean Corpuscular Hemoglobin 30.8 pg (27.0-31.0); Mean Corpuscular Volume 93.9 fL (78.0-98.0); Mean Platelet Volume 8.1 fL (7.4-10.4); Platelet Count 250 thou/uL (130-400); RBC Distribution Width 15.2 % (11.5-14.5); Red Blood Cell (RBC) Count 3.74 mill/uL (4.70-6.10); White Blood Cell (WBC) Count 13.1 thou/uL (4.8-10.8)
[2020-08-30 04:56] LABS: BUN (Urea Nitrogen) 13 mg/dL (8.4-25.7); Calc. Creatinine Clearance 190 mL/min (70-130); Glucose 122 mg/dL (70-105)
[2020-08-30 05:05] LABS: Anion Gap 13 mmol/L (10-20); Carbon Dioxide 35 mmol/L (22-29); Chloride 97 mmol/L (98-107); Sodium 142 mmol/L (136-145)
[2020-08-30] MEDS ORDERED: Potassium Chloride 40 MEQ in Premix Bag 1 BAG IVPB SCH (05:45)
[2020-08-30] MEDS: Piperacillin/Tazobactam 3.375 GM in Sodium Chloride 0.9% 100 ML IVPB SCH ×4 (05:49→23:46)
[2020-08-30] MEDS: HYDROcodone/Acetaminophen 5/325 mg Tablet PO PRN ×3 (06:48→17:19)
[2020-08-30] MEDS: Mometasone 200 MCG/Formoterol 5 MCG 120 PUFF INHALER INH SCH ×2 (07:09→19:01)
[2020-08-30] MEDS: Potassium Bicarbonate/Cit Ac 20 MEQ TAB PO SCH ×3 (09:00→18:06)
[2020-08-30] MEDS: Multivit, Therapeutic 1 TAB PO SCH (09:01)
[2020-08-30] MEDS: Famotidine 20 MG TAB PO SCH ×2 (09:01→20:17)
[2020-08-30] MEDS: Enoxaparin Sodium 40 MG/0.4 ML SYRINGE SC SCH ×2 (09:01→20:16)
[2020-08-30] MEDS: Furosemide 40 MG TAB PO SCH (09:01)
[2020-08-30] MEDS: Dexamethasone 4 mg/ml Vial SLOW IVP SCH (09:02)
[2020-08-30] MEDS: Linezolid 600 MG in Premix Bag 1 BAG IVPB SCH ×2 (09:02→19:50)
[2020-08-30] MEDS: Colchicine 0.3 MG TAB PO SCH ×2 (09:02→20:15)
[2020-08-30] MEDS: Docusate Sodium 100 MG/10 ML UDCUP PER TUBE SCH ×2 (09:02→20:16)
[2020-08-30] MEDS: Polyethylene Glycol 3350 17 GM Packet PO SCH (09:03)
[2020-08-30] MEDS: Amitriptyline HCl 25 MG TAB PO SCH (20:14)
[2020-08-31 04:33] LABS: #Basophils 0.1 thou/uL (0.0-0.2); #Eosinphils 0.1 thou/uL (0.0-0.7); #Lymphocytes 1.5 thou/uL (1.20-3.40); #Monocytes 0.8 thou/uL (0.11-0.59); #Neutrophils 12.7 thou/uL (1.40-6.50); %Basophils 0.5 % (0.0-1.0); %Eosinophils 0.7 % (0.0-10.0); %Lymphocytes 9.7 % (21.0-51.0); %Monocytes 5.3 % (0.0-10.0); %Neutrophils 83.8 % (42.0-75.0); Hemoglobin 11.8 g/dL (14.0-18.0); Mean Corpuscular HGB CONC 32.5 g/dL (32.0-36.0); Mean Corpuscular Hemoglobin 30.3 pg (27.0-31.0); Mean Corpuscular Volume 93.1 fL (78.0-98.0); Mean Platelet Volume 7.9 fL (7.4-10.4); Platelet Count 255 thou/uL (130-400); RBC Distribution Width 15.2 % (11.5-14.5); Red Blood Cell (RBC) Count 3.91 mill/uL (4.70-6.10); White Blood Cell (WBC) Count 15.2 thou/uL (4.8-10.8)
[2020-08-31 04:54] LABS: Anion Gap 9 mmol/L (10-20); BUN (Urea Nitrogen) 15 mg/dL (8.4-25.7); Calc. Creatinine Clearance 194 mL/min (70-130); Calcium 8.4 mg/dL (7.8-10.44); Carbon Dioxide 35 mmol/L (22-29); Chloride 99 mmol/L (98-107); Glucose 89 mg/dL (70-105); Potassium 3.4 mmol/L (3.5-5.1); Sodium 140 mmol/L (136-145)
[2020-08-31] MEDS: Piperacillin/Tazobactam 3.375 GM in Sodium Chloride 0.9% 100 ML IVPB SCH ×3 (05:23→17:10)
[2020-08-31] MEDS: HYDROcodone/Acetaminophen 5/325 mg Tablet PO PRN ×4 (05:27→21:00)
[2020-08-31] MEDS ORDERED: Potassium Bicarbonate/Cit Ac 20 MEQ TAB PO SCH (07:30)
[2020-08-31] MEDS: Mometasone 200 MCG/Formoterol 5 MCG 120 PUFF INHALER INH SCH ×2 (08:03→18:55)
[2020-08-31] MEDS: Multivit, Therapeutic 1 TAB PO SCH (08:58)
[2020-08-31] MEDS: Famotidine 20 MG TAB PO SCH ×2 (08:58→20:03)
[2020-08-31] MEDS: Furosemide 40 MG TAB PO SCH (08:58)
[2020-08-31] MEDS: Enoxaparin Sodium 40 MG/0.4 ML SYRINGE SC SCH ×2 (08:59→20:05)
[2020-08-31] MEDS: Linezolid 600 MG in Premix Bag 1 BAG IVPB SCH ×2 (08:59→20:06)
[2020-08-31] MEDS: Dexamethasone 4 mg/ml Vial SLOW IVP SCH (08:59)
[2020-08-31] MEDS: Potassium Bicarbonate/Cit Ac 20 MEQ TAB PO SCH ×2 (09:01→17:10)
[2020-08-31] MEDS: Colchicine 0.3 MG TAB PO SCH ×2 (12:32→20:05)
[2020-08-31] MEDS: Polyethylene Glycol 3350 17 GM Packet PO SCH (12:33)
[2020-08-31] MEDS: Docusate Sodium 100 MG/10 ML UDCUP PER TUBE SCH ×2 (12:33→20:05)
[2020-08-31] MEDS: Amitriptyline HCl 25 MG TAB PO SCH (20:03)
[2020-08-31] MEDS: ALPRAZolam 0.25 MG TAB PER TUBE PRN (20:03)
[2020-09-01] MEDS: Piperacillin/Tazobactam 3.375 GM in Sodium Chloride 0.9% 100 ML IVPB SCH ×4 (00:01→17:46)
[2020-09-01] MEDS: HYDROcodone/Acetaminophen 5/325 mg Tablet PO PRN ×5 (01:27→21:32)
[2020-09-01 05:08] LABS: #Eosinphils 0.1 thou/uL (0.0-0.7); #Lymphocytes 1.2 thou/uL (1.20-3.40); #Monocytes 0.7 thou/uL (0.11-0.59); #Neutrophils 13.4 thou/uL (1.40-6.50); %Basophils 0.2 % (0.0-1.0); %Eosinophils 0.8 % (0.0-10.0); %Monocytes 4.5 % (0.0-10.0); %Neutrophils 86.5 % (42.0-75.0); Hemoglobin 11.7 g/dL (14.0-18.0); Mean Corpuscular HGB CONC 31.3 g/dL (32.0-36.0); Mean Corpuscular Hemoglobin 29.1 pg (27.0-31.0); Mean Corpuscular Volume 92.7 fL (78.0-98.0); Mean Platelet Volume 7.4 fL (7.4-10.4); Platelet Count 242 thou/uL (130-400); RBC Distribution Width 15.3 % (11.5-14.5); Red Blood Cell (RBC) Count 4.03 mill/uL (4.70-6.10); White Blood Cell (WBC) Count 15.5 thou/uL (4.8-10.8)
[2020-09-01 05:27] LABS: Anion Gap 10 mmol/L (10-20); BUN (Urea Nitrogen) 14 mg/dL (8.4-25.7); Calc. Creatinine Clearance 165 mL/min (70-130); Calcium 8.2 mg/dL (7.8-10.44); Carbon Dioxide 33 mmol/L (22-29); Chloride 97 mmol/L (98-107); Glucose 97 mg/dL (70-105); Potassium 3.5 mmol/L (3.5-5.1); Sodium 136 mmol/L (136-145)
[2020-09-01] MEDS ORDERED: Potassium Bicarbonate/Cit Ac 20 MEQ TAB PO SCH (06:15)
[2020-09-01] MEDS: Mometasone 200 MCG/Formoterol 5 MCG 120 PUFF INHALER INH SCH ×2 (08:39→19:12)
[2020-09-01] MEDS: Furosemide 40 MG TAB PO SCH (08:48)
[2020-09-01] MEDS: Dexamethasone 4 mg/ml Vial SLOW IVP SCH (08:49)
[2020-09-01] MEDS: Multivit, Therapeutic 1 TAB PO SCH (08:49)
[2020-09-01] MEDS: Enoxaparin Sodium 40 MG/0.4 ML SYRINGE SC SCH ×2 (08:50→20:08)
[2020-09-01] MEDS: Docusate Sodium 100 MG/10 ML UDCUP PER TUBE SCH ×2 (08:50→20:08)
[2020-09-01] MEDS: Polyethylene Glycol 3350 17 GM Packet PO SCH (08:51)
[2020-09-01] MEDS: Famotidine 20 MG TAB PO SCH ×2 (08:51→20:10)
[2020-09-01] MEDS: Linezolid 600 MG in Premix Bag 1 BAG IVPB SCH ×2 (08:53→20:10)
[2020-09-01] MEDS: Potassium Bicarbonate/Cit Ac 20 MEQ TAB PO SCH ×2 (08:55→16:02)
[2020-09-01] MEDS: Colchicine 0.3 MG TAB PO SCH ×2 (08:55→20:08)
[2020-09-01] MEDS: ALPRAZolam 0.25 MG TAB PER TUBE PRN ×2 (16:01→20:09)
[2020-09-01] MEDS: Amitriptyline HCl 25 MG TAB PO SCH (20:08)
[2020-09-02] MEDS: Piperacillin/Tazobactam 3.375 GM in Sodium Chloride 0.9% 100 ML IVPB SCH ×5 (00:34→23:58)
[2020-09-02 06:13] LABS: #Basophils 0.1 thou/uL (0.0-0.2); #Eosinphils 0.1 thou/uL (0.0-0.7); #Lymphocytes 1.4 thou/uL (1.20-3.40); #Monocytes 0.9 thou/uL (0.11-0.59); #Neutrophils 11.8 thou/uL (1.40-6.50); %Eosinophils 0.5 % (0.0-10.0); %Lymphocytes 9.9 % (21.0-51.0); %Neutrophils 82.6 % (42.0-75.0); Hemoglobin 12.8 g/dL (14.0-18.0); Mean Corpuscular HGB CONC 33.5 g/dL (32.0-36.0); Mean Corpuscular Hemoglobin 30.9 pg (27.0-31.0); Mean Corpuscular Volume 92.3 fL (78.0-98.0); Mean Platelet Volume 7.6 fL (7.4-10.4); Platelet Count 271 thou/uL (130-400); RBC Distribution Width 15.3 % (11.5-14.5); Red Blood Cell (RBC) Count 4.15 mill/uL (4.70-6.10); White Blood Cell (WBC) Count 14.3 thou/uL (4.8-10.8)
[2020-09-02 06:31] LABS: Anion Gap 13 mmol/L (10-20); BUN (Urea Nitrogen) 13 mg/dL (8.4-25.7); Calc. Creatinine Clearance 147 mL/min (70-130); Calcium 8.8 mg/dL (7.8-10.44); Carbon Dioxide 32 mmol/L (22-29); Chloride 97 mmol/L (98-107); Glucose 106 mg/dL (70-105); Potassium 3.8 mmol/L (3.5-5.1); Sodium 138 mmol/L (136-145)
[2020-09-02] MEDS: Mometasone 200 MCG/Formoterol 5 MCG 120 PUFF INHALER INH SCH ×2 (08:10→19:00)
[2020-09-02] MEDS: HYDROcodone/Acetaminophen 5/325 mg Tablet PO PRN ×5 (09:16→21:22)
[2020-09-02] MEDS: Enoxaparin Sodium 40 MG/0.4 ML SYRINGE SC SCH ×2 (09:18→21:22)
[2020-09-02] MEDS: Potassium Bicarbonate/Cit Ac 20 MEQ TAB PO SCH ×2 (09:19→18:02)
[2020-09-02] MEDS: Famotidine 20 MG TAB PO SCH ×2 (09:20→21:21)
[2020-09-02] MEDS: Dexamethasone 4 mg/ml Vial SLOW IVP SCH (09:20)
[2020-09-02] MEDS: Multivit, Therapeutic 1 TAB PO SCH (09:20)
[2020-09-02] MEDS: Colchicine 0.3 MG TAB PO SCH ×2 (09:20→21:22)
[2020-09-02] MEDS: Linezolid 600 MG in Premix Bag 1 BAG IVPB SCH (09:21)
[2020-09-02] MEDS: Docusate Sodium 100 MG/10 ML UDCUP PER TUBE SCH ×2 (09:22→21:23)
[2020-09-02] MEDS: Polyethylene Glycol 3350 17 GM Packet PO SCH (09:22)
[2020-09-02] MEDS: ALPRAZolam 0.25 MG TAB PER TUBE PRN ×3 (11:36→21:22)
[2020-09-02] MEDS ORDERED: Loperamide HCl 2 MG CAP PO PRN (18:16)
[2020-09-02] MEDS: Amitriptyline HCl 25 MG TAB PO SCH (21:21)
[2020-09-02] MEDS: Loperamide HCl 2 MG CAP PO SCH (21:22)
[2020-09-03] MEDS: Piperacillin/Tazobactam 3.375 GM in Sodium Chloride 0.9% 100 ML IVPB SCH ×3 (06:04→18:20)
[2020-09-03] MEDS: Mometasone 200 MCG/Formoterol 5 MCG 120 PUFF INHALER INH SCH ×2 (08:38→19:23)
[2020-09-03] MEDS: Polyethylene Glycol 3350 17 GM Packet PO SCH (08:58)
[2020-09-03] MEDS: Docusate Sodium 100 MG/10 ML UDCUP PER TUBE SCH ×2 (08:58→20:18)
[2020-09-03] MEDS: Dexamethasone 4 MG TAB PO SCH (09:04)
[2020-09-03] MEDS: Famotidine 20 MG TAB PO SCH ×2 (09:04→20:17)
[2020-09-03] MEDS: Potassium Bicarbonate/Cit Ac 20 MEQ TAB PO SCH ×3 (09:04→18:37)
[2020-09-03] MEDS: Colchicine 0.3 MG TAB PO SCH ×2 (09:04→20:18)
[2020-09-03] MEDS: Enoxaparin Sodium 40 MG/0.4 ML SYRINGE SC SCH (09:04)
[2020-09-03] MEDS: Multivit, Therapeutic 1 TAB PO SCH (09:04)
[2020-09-03] MEDS: HYDROcodone/Acetaminophen 5/325 mg Tablet PO PRN ×4 (10:17→22:34)
[2020-09-03] MEDS: ALPRAZolam 0.25 MG TAB PER TUBE PRN ×3 (10:20→22:34)
[2020-09-03] MEDS ORDERED: HYDROCODONE BITARTRATE 60 MG PO SCH (15:15)
[2020-09-03] MEDS: Apixaban 5 MG TAB PO SCH (20:17)
[2020-09-03] MEDS: Loperamide HCl 2 MG CAP PO SCH (20:18)
[2020-09-03] MEDS: Amitriptyline HCl 25 MG TAB PO SCH (20:18)
[2020-09-04] MEDS: Piperacillin/Tazobactam 3.375 GM in Sodium Chloride 0.9% 100 ML IVPB SCH ×5 (00:44→23:52)
[2020-09-04] MEDS: Mometasone 200 MCG/Formoterol 5 MCG 120 PUFF INHALER INH SCH ×2 (08:27→18:26)
[2020-09-04] MEDS: HYDROCODONE BITARTRATE 60 MG PO SCH (10:18)
[2020-09-04] MEDS: Potassium Bicarbonate/Cit Ac 20 MEQ TAB PO SCH ×2 (10:19→17:01)
[2020-09-04] MEDS: Colchicine 0.3 MG TAB PO SCH ×2 (10:19→21:18)
[2020-09-04] MEDS: Multivit, Therapeutic 1 TAB PO SCH (10:19)
[2020-09-04] MEDS: Apixaban 5 MG TAB PO SCH ×2 (10:19→21:17)
[2020-09-04] MEDS: Famotidine 20 MG TAB PO SCH ×2 (10:19→21:18)
[2020-09-04] MEDS: Dexamethasone 4 MG TAB PO SCH (10:19)
[2020-09-04] MEDS: Polyethylene Glycol 3350 17 GM Packet PO SCH (10:20)
[2020-09-04] MEDS: Docusate Sodium 100 MG/10 ML UDCUP PER TUBE SCH ×2 (10:20→21:18)
[2020-09-04 14:51] VITALS: BMI 27.7
[2020-09-04] MEDS: Amitriptyline HCl 25 MG TAB PO SCH (21:17)
[2020-09-04] MEDS: ALPRAZolam 0.25 MG TAB PER TUBE PRN (21:17)
[2020-09-04] MEDS: Loperamide HCl 2 MG CAP PO SCH (21:18)
[2020-09-05] MEDS: Piperacillin/Tazobactam 3.375 GM in Sodium Chloride 0.9% 100 ML IVPB SCH (05:57)
[2020-09-05] MEDS: Mometasone 200 MCG/Formoterol 5 MCG 120 PUFF INHALER INH SCH ×2 (08:15→19:17)
[2020-09-05] MEDS ORDERED: HYDROcodone/Acetaminophen 5/325 mg Tablet PO PRN (08:45)
[2020-09-05] MEDS ORDERED: Amoxicillin/Potassium Clav 875 MG TAB PO SCH (09:00)
[2020-09-05] MEDS: Potassium Bicarbonate/Cit Ac 20 MEQ TAB PO SCH ×2 (09:09→16:51)
[2020-09-05] MEDS: Famotidine 20 MG TAB PO SCH (09:09)
[2020-09-05] MEDS: Docusate Sodium 100 MG/10 ML UDCUP PER TUBE SCH (09:10)
[2020-09-05] MEDS: Dexamethasone 4 MG TAB PO SCH (09:10)
[2020-09-05] MEDS: Colchicine 0.3 MG TAB PO SCH (09:10)
[2020-09-05] MEDS: Apixaban 5 MG TAB PO SCH (09:11)
[2020-09-05] MEDS: Polyethylene Glycol 3350 17 GM Packet PO SCH (09:11)
[2020-09-05] MEDS: Multivit, Therapeutic 1 TAB PO SCH (09:11)
[2020-09-05] MEDS: HYDROCODONE BITARTRATE 60 MG PO SCH (09:41)
[2020-09-05 11:37] VITALS: TEMP 98
[2020-09-05 13:17] VITALS: BP 125/84
== END 2020-09-05 19:19 | DRG 870 ==
LOC: ERS 08:02 → SUATTDRO 08:02 → ERHOLD 10:03 → CCU 21:12 → IMCU/EMU 08-19 14:53 → CCU 08-23 09:18 → IMCU/EMU 08-31 14:57
PROVIDERS: ADMIT Emergency Medicine; ATTEND Family Medicine
PROC: 8E0ZXY6 Isolation (ICD-10-PCS; 2020-08-04)
PROC: 5A0945A Assistance with Respiratory Ventilation, 24-96 Consecutive Hours, High Flow/Velocity Cannula (ICD-10-PCS; 2020-08-04)
PROC: XW033H5 Introduction of Tocilizumab into Peripheral Vein, Percutaneous Approach, New Technology Group 5 (ICD-10-PCS; principal; 2020-08-07)
PROC: 5A1955Z Respiratory Ventilation, Greater than 96 Consecutive Hours (ICD-10-PCS; 2020-08-07)
PROC: 0DH67UZ Insertion of Feeding Device into Stomach, Via Natural or Artificial Opening (ICD-10-PCS; 2020-08-07)
PROC: 0BH17EZ Insertion of Endotracheal Airway into Trachea, Via Natural or Artificial Opening (ICD-10-PCS; 2020-08-07)
PROC: 0W993ZX Drainage of Right Pleural Cavity, Percutaneous Approach, Diagnostic (ICD-10-PCS; 2020-08-22)
PROC: 0W9900Z Drainage of Right Pleural Cavity with Drainage Device, Open Approach (ICD-10-PCS; 2020-08-23)
PROC: 5A1945Z Respiratory Ventilation, 24-96 Consecutive Hours (ICD-10-PCS; 2020-08-23)
PROC: 0BH18EZ Insertion of Endotracheal Airway into Trachea, Via Natural or Artificial Opening Endoscopic (ICD-10-PCS; 2020-08-23)
PROC: 02HV33Z Insertion of Infusion Device into Superior Vena Cava, Percutaneous Approach (ICD-10-PCS; 2020-08-23)
PROC: B548ZZA Ultrasonography of Superior Vena Cava, Guidance (ICD-10-PCS; 2020-08-23)
PROC: 04HY32Z Insertion of Monitoring Device into Lower Artery, Percutaneous Approach (ICD-10-PCS; 2020-08-23)
PROC: 3E033XZ Introduction of Vasopressor into Peripheral Vein, Percutaneous Approach (ICD-10-PCS; 2020-08-23)
PROC: 5A09357 Assistance with Respiratory Ventilation, Less than 24 Consecutive Hours, Continuous Positive Airway Pressure (ICD-10-PCS; 2020-08-28)
DX: A41.89 Other specified sepsis (principal); U07.1 COVID-19; J12.82 Pneumonia due to coronavirus disease 2019; G93.41 Metabolic encephalopathy; N17.0 Acute kidney failure with tubular necrosis; J80 Acute respiratory distress syndrome; R65.21 Severe sepsis with septic shock; J93.0 Spontaneous tension pneumothorax; J15.9 Unspecified bacterial pneumonia; B37.0 Candidal stomatitis; J90 Pleural effusion, not elsewhere classified; E87.1 Hypo-osmolality and hyponatremia; I10 Essential (primary) hypertension; R77.8 Other specified abnormalities of plasma proteins; M54.9 Dorsalgia, unspecified; F41.9 Anxiety disorder, unspecified; E66.01 Morbid (severe) obesity due to excess calories; G89.4 Chronic pain syndrome; L89.156 Pressure-induced deep tissue damage of sacral region; R13.12 Dysphagia, oropharyngeal phase; Y95 Nosocomial condition; E87.6 Hypokalemia; Z78.1 Physical restraint status; Z79.899 Other long term (current) drug therapy; Z68.27 Body mass index [BMI] 27.0-27.9, adult; L89.312 Pressure ulcer of right buttock, stage 2
CPT/HCPCS: 0240U; 36415; 36416; 36600; 70450; 71045; 71250; 71275; 74018; 74177; 74230; 76942; 80048; 80053; 80202; 82553; 82728; 82805; 82945; 83605; 83615; 83735; 83880; 83986; 84100; 84155; 84157; 84484; 85025; 85060; 85379; 85610; 85730; 86140; 86850; 86900; 86901; 87040; 87070; 87205; 87324; 87449; 87497; 87899; 88112; 88305; 89051; 93005; 93010; 94002; 94003; 94640; 94660; 94760; 96365; 96372; 96375; J0456; J0692; J0696; J1100; J1650; J1720; J1940; J2001; J2020; J2060; J2248; J2250; J2270; J2405; J2543; J2704; J3010; J3262; J3370; J3480; J3490; J7050; J7620; J8540; P9047; Q9967; S0028

== ENCOUNTER 2020-10-23 11:53 | Outpatient (CLI) | payer BC | END 2020-10-23 11:54 | disposition home or self-care (01) | LOC: BICRAD 11:53 | PROVIDERS: ATTEND Internal Medicine Pulmonary Disease | DX: R06.00 Dyspnea, unspecified (principal) | CPT/HCPCS: 71046 ==

== ENCOUNTER 2021-03-09 09:43 | Outpatient (CLI) | payer BC | END 2021-03-09 09:44 | disposition home or self-care (01) | LOC: BICRAD 09:43 | PROVIDERS: ATTEND Internal Medicine Cardiovascular Disease | DX: R06.02 Shortness of breath (principal) | CPT/HCPCS: 71046 ==

== ENCOUNTER 2021-08-11 19:30 | Outpatient (CLI) | payer BC | END 2021-08-11 19:31 | disposition home or self-care (01) | LOC: SLEEPLAB 19:30 | PROVIDERS: ATTEND Internal Medicine Critical Care Medicine | DX: G47.33 Obstructive sleep apnea (adult) (pediatric) (principal); G25.81 Restless legs syndrome; R51.9 Headache, unspecified; R06.83 Snoring; G47.61 Periodic limb movement disorder; R53.83 Other fatigue; G47.10 Hypersomnia, unspecified; R09.02 Hypoxemia; I49.3 Ventricular premature depolarization; G47.00 Insomnia, unspecified | CPT/HCPCS: 95810 ==

== ENCOUNTER 2021-10-27 14:13 | Outpatient (CLI) | payer BC | END 2021-10-27 14:14 | disposition home or self-care (01) | LOC: LABBT 14:13 | PROVIDERS: ATTEND Family Medicine | DX: Z20.822 Contact with and (suspected) exposure to COVID-19 (principal) | CPT/HCPCS: 87811 ==

== ENCOUNTER 2021-10-29 15:06 | Outpatient (CLI) | payer BC | END 2021-10-29 15:07 | disposition home or self-care (01) | LOC: RAD 15:06 | PROVIDERS: ATTEND Otolaryngology Plastic Surgery within the Head & Neck | DX: R13.13 Dysphagia, pharyngeal phase (principal); R49.0 Dysphonia | CPT/HCPCS: 74230 ==

== ENCOUNTER 2021-11-03 19:30 | Outpatient (CLI) | payer BC | END 2021-11-03 19:31 | disposition home or self-care (01) | LOC: SLEEPLAB 19:30 | PROVIDERS: ATTEND Internal Medicine Critical Care Medicine | DX: G47.33 Obstructive sleep apnea (adult) (pediatric) (principal); G25.81 Restless legs syndrome; R53.83 Other fatigue; R06.83 Snoring; R51.9 Headache, unspecified; R09.89 Other specified symptoms and signs involving the circulatory and respiratory systems; R09.02 Hypoxemia; G47.10 Hypersomnia, unspecified; E66.9 Obesity, unspecified; Z68.31 Body mass index [BMI] 31.0-31.9, adult | CPT/HCPCS: 95811 ==

== ENCOUNTER 2023-10-11 13:04 | Outpatient (CLI) | payer BC ==
[2023-10-11 14:16] LABS: #Basophils 0.04 10x3/uL (0.0-0.2); #Eosinphils 0.09 10x3/uL (0.0-0.5); #Neutrophils 4.67 10x3/uL (1.5-8.4); %Basophils 0.5 % (0.0-2.0); %Lymphocytes 35.6 % (18.0-47.0); %Monocytes 9.2 % (0.0-10.0); %Neutrophils 53.6 % (40.0-75.0); Hematocrit 40.7 % (38.8-50.0); Hemoglobin 13.9 g/dL (13.5-17.5); Mean Corpuscular HGB CONC 34.2 g/dL (32.0-36.0); Mean Corpuscular Hemoglobin 29.3 pg (27.0-33.0); Mean Corpuscular Volume 85.9 fL (81.2-95.1); Mean Platelet Volume 9.6 fL (7.4-10.4); Platelet Count 242 10x3/uL (150-450); RBC Distribution Width 13.1 % (11.5-14.5); Red Blood Cell (RBC) Count 4.74 10x6/uL (4.32-5.72); White Blood Cell (WBC) Count 8.7 10x3/uL (3.5-10.5)
[2023-10-11 14:42] LABS: ALT (SGPT) 17 U/L (8-55); AST (SGOT) 20 U/L (5-34); Albumin 4.2 g/dL (3.4-4.8); Alkaline Phosphatase 52 U/L (40-110); Anion Gap 12 mmol/L (10-20); BUN (Urea Nitrogen) 23 mg/dL (8.4-25.7); Bilirubin, Direct 0.2 mg/dL (0.1-0.3); Bilirubin, Total 0.6 mg/dL (0.2-1.2); Calc. Creatinine Clearance 0 mL/min (70-130); Calcium 9.9 mg/dL (7.8-10.44); Carbon Dioxide 29 mmol/L (23-31); Chloride 104 mmol/L (98-107); Estimated GFR 67; Globulin 2.8 g/dL (2.4-3.5); Glucose 86 mg/dL (80-115); Potassium 4.2 mmol/L (3.5-5.1); Sodium 141 mmol/L (136-145)
== END 2023-10-11 13:05 | disposition home or self-care (01) ==
LOC: LABBT 13:04
PROVIDERS: ATTEND Internal Medicine Cardiovascular Disease
DX: Z01.818 Encounter for other preprocedural examination (principal)
CPT/HCPCS: 80053; 80076; 85025; 93005; 93010

== ENCOUNTER → 2023-10-18 | Day surgery (SDC) | payer BC ==
[2023-10-11 13:59] VITALS: BMI 31.8
[~2023-10-18] MED LIST: Heparin 10,000 UNITS/ 10 ML VIAL ONE; Midazolam HCl 2 mg/2 ml Vial ONE; Nitroglycerin 50 MG/250 ML BOT 250 ML ONE; Verapamil 5 MG/2 ML VIAL ONE; fentaNYL 50 mcg/mL 1 mL Vial ONE
[2023-10-18 07:07] LABS: Cardiac Risk 3.9 (Less than 4.5)
== END ==
LOC: SDC 05:39
PROVIDERS: ATTEND Internal Medicine Cardiovascular Disease
PROC: 4A023N7 Measurement of Cardiac Sampling and Pressure, Left Heart, Percutaneous Approach (ICD-10-PCS; principal; 2023-10-18)
DX: R06.02 Shortness of breath (principal); I47.20 Ventricular tachycardia, unspecified; I47.10 Supraventricular tachycardia, unspecified; I10 Essential (primary) hypertension; Z79.899 Other long term (current) drug therapy; Z88.5 Allergy status to narcotic agent; Z87.891 Personal history of nicotine dependence; Z86.16 Personal history of COVID-19
CPT/HCPCS: 80061; 93458; C1769; C1894; J1644; J2250; J3010

== ENCOUNTER 2024-05-17 14:27 | Outpatient (CLI) | payer BC | END 2024-05-17 14:28 | disposition home or self-care (01) | LOC: BICCT 14:27 | PROVIDERS: ATTEND Physician Assistant Medical | DX: K76.89 Other specified diseases of liver (principal) | CPT/HCPCS: 36415; 74170; 82565 ==